=== PATIENT | male | born 1950 | race Caucasian/White ===

== ENCOUNTER → 2016-06-15 | Day surgery (SDC) | payer BC ==
[2016-06-09 09:29] VITALS: Ht 182.9 cm; Wt 102.3 kg
[~2016-06-15] VITALS: Ht 182.9 cm; Wt 102.3 kg
[~2016-06-15] MED LIST: ACT/30 PO; ALBUAER2 INH; ASPI81TA28 PO; CHOL100027 PO; CYAN500T PO; CYM30 PO; FENO67CA PO; GLCSR500 PO; INSDGI SC; KRIL1000 PO; LIDOCAINE HCL 2% 2 ML VIAL (20MG/ML) ONE; LISI20TA3 PO; MIDAZOLAM HCL 1 MG/ML 2ML VIAL ONE; ONDANSETRON INJ 2 MG/ML 2 ML VIAL ONE; PROPOFOL IV EMULSION 10 MG/ML 20 ML VIAL IV ONE; REPA2TAB13 PO; SODIUM CHLORIDE 0.9% 500ML 500 ML IV ONE; TAMS0.4C59 PO; TPRSR100 PO; ZNT/150 PO
[2016-06-15 08:15] VITALS: TEMP 36.8
--- NOTE | 2016-06-15 08:49 | Endo History and Physical ---
History & Physical Date of Service: Jun 15, 2016. Chief Complaint: 3 yr f/u, Hx polyps, Family Hx colon CA Referring Physician: Kaci Aguilera History of Present Illness h/o polyps, mother had colon cancer Past Medical History Diabetes, Angioplasty/Stent, Arthritis, Anxiety, Reflux, Hypertension Past Surgical History Hx Cardiac Surgery: Yes (HEART CATH X2, STENT X1) Hx Internal Defibrillator: No Hx Pacemaker: No Hx Abdominal Surgery: Yes ([facility]ALD) Hx of Implantable Prosthesis: No Hx Post-Op Nausea and Vomiting: No Hx Cancer Surgery: No Hx Thoracic Surgery: No Hx Orthopedic: No Hx Urinary Tract Surgery: No Family History Colon CA Social History Smoking Status: Former Smoker Hx Substance Use: No Hx Alcohol Use: Yes (OCCASIONAL) Allergies Coded Allergies: Statins (Verified Allergy, Mild, HYPEREOSINOPHILIA, 06/09/16) HMG-CoA-R Inhibitors (Verified Allergy, Unknown, HYPEREOSINOPHILIA, ) NSAIDs (Verified Allergy, Unknown, SENSITIVITY R/T HX EOSINOPHILIA, ) Quinolones (Verified Allergy, Unknown, HYPEREOSINOPHILIA, 06/09/16) Current Medications Reported Home Medications Medications Dose Route/Sig Max Daily Dose Days Date Category Lantus (Insulin Glargine) 100 Unit/Ml Inj 50 Units SC QPM 06/09/16 Reported Vitamin B-12 (Cyanocobalamin) 500 Mcg Tab 500 Mcg PO DAILY 06/09/16 Reported Aspirin Ec (Aspirin) 81 Mg Tab 81 Mg PO QAM 06/09/16 Reported Prinivil (Lisinopril) 20 Mg Tab 20 Mg PO QAM 06/09/16 Reported Toprol Xl (Metoprolol Succinate) 100 Mg Tabcr 50 Mg PO QAM 01/09/15 Reported Krill Oil 1 Cap Cap 1 Cap PO DAILY 02/02/13 Reported Flomax (Tamsulosin Hcl) 0.4 Mg Cap 0.4 Mg PO QPM 02/02/13 Reported Vitamin D 1000 Unit (Cholecalciferol) 1,000 Unit Cap 1,000 Inter.unit PO Q2D 03/13/12 Reported Tricor (Fenofibrate Micronized) 67 Mg Cap 67 Mg PO QPM 03/13/12 Reported Prandin (Repaglinide) 2 Mg Tab 2 Mg PO QPM 03/13/12 Reported Zantac (Ranitidine Hcl) 150 Mg Tab 150 Mg PO QAM 03/13/12 Reported Actos (Pioglitazone Hcl) 30 Mg Tab 30 Mg PO QAM 03/13/12 Reported Glucophage Ext Rel * (Metformin HCl) 1,000 Mg Tabcr 1,000 Mg PO BID 03/02/09 Reported Cymbalta * (Duloxetine HCl) 30 Mg Cap 30 Mg PO QAM 03/02/09 Reported Ventolin (Albuterol) Inh 2 Puffs INH Q4H PRN 03/02/09 Reported Vital Signs Weight (Kilograms): 102.27 Height (Feet): 6 Height (Inches): 0 Date Time Temp Pulse Resp B/P Pulse Ox O2 Delivery O2 Flow Rate FiO2 06/15/16 08:15 36.8 73 20 191/93 99 Room Air Physical Exam General Appearance: WD/WN, no apparent distress Assessment and Plan Colonoscopy today
--- NOTE | 2016-06-15 09:24 | GI REPORT ---
Procedure Date: 06/15/2016 9:02 AM Procedure: Colonoscopy Indications: Surveillance: Personal history of adenomatous polyps on last colonoscopy 3 years ago, Family history of colon cancer in a first-degree relative Medicines: Propofol per Anesthesia Complications: No immediate complications. Estimated blood loss: Minimal. Estimated Blood Loss: Estimated blood loss was minimal. Procedure: Pre-Anesthesia Assessment: - Prior to the procedure, a History and Physical was performed, and patient medications, allergies and sensitivities were reviewed. The patient's tolerance of previous anesthesia was reviewed. - The risks and benefits of the procedure and the sedation options and risks were discussed with the patient. All questions were answered and informed consent was obtained. - Patient identification and proposed procedure were verified prior to the procedure by the physician and the nurse. The procedure was verified in the pre-procedure area in the procedure room. - Mental Status Examination: alert and oriented. Airway Examination: normal oropharyngeal airway and neck mobility. Respiratory Examination: clear to auscultation. CV Examination: normal. Abdominal Examination: bowel sounds present, abdomen soft and non-tender, no masses or organomegaly noted. - ASA Grade Assessment: II - A patient with mild systemic disease. After I obtained informed consent, the scope was passed under direct vision. Throughout the procedure, the patient's blood pressure, pulse, and oxygen saturations were monitored continuously. The scope was introduced through the anus and advanced to the terminal ileum. The colonoscopy was performed without difficulty. The patient tolerated the procedure well. The quality of the bowel preparation was good. Findings: The perianal and digital rectal examinations were normal. Pertinent negatives include normal sphincter tone and no palpable rectal lesions. The terminal ileum appeared normal. Two sessile polyps were found in the ascending colon. The polyps were 2 to 3 mm in size. These polyps were removed with a cold snare. Resection and retrieval were complete. Verification of patient identification for the specimen was done by the physician and nurse using the patient's name and date. Estimated blood loss was minimal. Multiple small and large-mouthed diverticula were found in the sigmoid colon. The retroflexed view of the distal rectum and anal verge was normal and showed no anal or rectal abnormalities. Impression: - The examined portion of the ileum was normal. - Two 2 to 3 mm polyps in the ascending colon, removed with a cold snare. Resected and retrieved. - Diverticulosis in the sigmoid colon. - The distal rectum and anal verge are normal on retroflexion view. Recommendation: - Await pathology results. - Repeat colonoscopy in 3 years for surveillance. - Return to referring physician as previously scheduled. - Discharge patient to home. Medina Navarrete D.O. Medina Navarrete, 06/15/2016 9:23:47 AM This report has been signed electronically. Note Initiated On: 06/15/2016 9:02 AM I attest to the content of the Intraoperative Record and orders documented therein, exceptions below
--- NOTE | 2016-06-15 09:32 | Discharge Instructions ---
Endoscopy Patient Instructions Date / Procedure(s) Performed Jun 15, 2016. Colonoscopy Allergy Information Coded Allergies: Statins (Verified Allergy, Mild, HYPEREOSINOPHILIA, 06/09/16) HMG-CoA-R Inhibitors (Verified Allergy, Unknown, HYPEREOSINOPHILIA, ) NSAIDs (Verified Allergy, Unknown, SENSITIVITY R/T HX EOSINOPHILIA, ) Quinolones (Verified Allergy, Unknown, HYPEREOSINOPHILIA, 06/09/16) Discharge Date / Findings Jun 15, 2016. polyps, diverticulosis Medication Instructions Restart Stopped Medication(s): OK to resume home medications OK to resume home medications Provider Instructions Activity Restrictions - No exercising or heavy lifting for 24 hours. - Do not drink alcohol the day of the procedure. - Do not drive a car or operate machinery until the day after the procedure. - Do not make any important decisions or sign important papers in 24 hours after the procedure. Following Day: - Return to full activity which may include returning to work/school. Diet Start your diet with liquids and light foods (jello, soup, juice, toast). Then eat your usual diet if not nauseated. Treatment For Common After Affects For mild abdominal pain, bloating, or excessive gas: - Rest - Eat lightly - Lie on right side Follow-Up Information Follow-up with Kaci Aguilera as scheduled Anesthesia Information What You Should Know You have had a procedure that required some medicine to reduce anxiety and discomfort. This treatment is called moderate sedation. After receiving the treatment, you may be sleepy, but you will be able to breathe on your own. The effects of the treatment may last for several hours. Follow these instructions along with Activity/Diet recommendations noted above: * Do NOT do anything where dizziness or clumsiness would be dangerous. * Rest quietly at home today, then you can be up and about tomorrow. * Have a responsible person stay with you the rest of today. * You may have had an I.V. today. If so, you may take the dressing off later today. Recommendations Call your doctor if: * Trouble breathing * Continuous vomiting for more than 24 hours * Temperature above 101 degrees * Severe abdominal pain or bloating * Pain not relieved by pain medicine ordered * There is increased drainage or redness from any incision * A large amount of rectal bleeding greater than 2-3 tablespoons. (If you had a polyp/s removed or have hemorrhoids, a small amount of blood - from the rectum is to be expected.) * You have any unanswered questions or concerns. IN THE EVENT OF A SERIOUS EMERGENCY, GO TO THE NEAREST EMERGENCY ROOM Your discharge instructions were prepared by provider Medina Navarrete. Patient Instructions Signature Page Ryan Guerrero Patient (or Guardian) Signature/Date: I have read and understand the instructions given to me by my caregivers. Caregiver/RN/Doctor Signature/Date: The above-named patient and/or guardian has received patient instructions on this date. + Original Patient Signature Page (only) stays with chart. Please make copy for patient.
[2016-06-15 09:54] VITALS: BP 142/89; PULSE 75; O2SAT 98
--- NOTE | 2016-06-15 10:07 | Anesthesiology Progress Note ---
Anesthesia Post Op Note Date & Time Jun 15, 2016 at 10:07 Vital Signs Pain Intensity: 0 Vital Signs Past 12 Hours Date Time Temp Pulse Resp B/P Pulse Ox O2 Delivery O2 Flow Rate FiO2 06/15/16 09:54 75 20 142/89 98 Room Air 06/15/16 09:39 74 20 152/89 97 Room Air 06/15/16 09:24 76 20 130/72 95 Room Air 06/15/16 08:15 36.8 73 20 191/93 99 Room Air Notes Mental Status: alert / awake / arousable, participated in evaluation Pt Amnestic to Procedure: Yes Nausea / Vomiting: adequately controlled Pain: adequately controlled Airway Patency, RR, SpO2: stable & adequate BP & HR: stable & adequate Hydration State: stable & adequate Anesthetic Complications: no major complications apparent
== END | disposition home or self-care (01) ==
LOC: C.GI 07:36
PROVIDERS: ATTEND Internal Medicine
DX: Z12.11 Encounter for screening for malignant neoplasm of colon (principal); Z86.010 Personal history of colon polyps; D12.2 Benign neoplasm of ascending colon; K57.30 Diverticulosis of large intestine without perforation or abscess without bleeding; I25.10 Atherosclerotic heart disease of native coronary artery without angina pectoris; I10 Essential (primary) hypertension; E11.9 Type 2 diabetes mellitus without complications; J45.909 Unspecified asthma, uncomplicated; J44.9 Chronic obstructive pulmonary disease, unspecified; N40.0 Benign prostatic hyperplasia without lower urinary tract symptoms; Z87.891 Personal history of nicotine dependence; Z68.30 Body mass index [BMI] 30.0-30.9, adult; Z79.4 Long term (current) use of insulin; Z80.0 Family history of malignant neoplasm of digestive organs

== ENCOUNTER → 2017-03-30 | Outpatient (CLI) | payer OTHER ==
[~2017-03-30] MED LIST changes: -LIDOCAINE HCL 2% 2 ML VIAL (20MG/ML) ONE; -MIDAZOLAM HCL 1 MG/ML 2ML VIAL ONE; -ONDANSETRON INJ 2 MG/ML 2 ML VIAL ONE; -PROPOFOL IV EMULSION 10 MG/ML 20 ML VIAL IV ONE; +REPA2TAB11 PO; -REPA2TAB13 PO; -SODIUM CHLORIDE 0.9% 500ML 500 ML IV ONE
--- NOTE | 2017-03-30 11:45 | DIAGNOSTIC IMAGING REPORT ---
CHEST 2 VIEWS ROUTINE CLINICAL HISTORY: Chronic cough. COMPARISON STUDY: Chest radiograph June 10, 2014. FINDINGS: Lung volumes are normal. No pneumothorax or pleural effusion is noted. Cardiac size is normal. Pulmonary vascularity is normal. Mild left lower lung opacity is unchanged and likely reflects atelectasis or epicardial fat pad. A nodular density projecting of the left lower lung is unchanged and likely reflects a nipple shadow. IMPRESSION: No acute cardiopulmonary findings. Electronically signed by: Demarcus Faith M.D. 03/30/2017 11:43 AM Dictated Date/Time: 03/30/2017 11:41 AM
== END | disposition home or self-care (01) ==
LOC: C.RAD1850 11:20
PROVIDERS: ATTEND Family Medicine Adolescent Medicine
DX: R05 Cough (principal)

== ENCOUNTER 2022-05-26 11:19 | Observation (INO) ==
[2022-05-26] MEDS ORDERED: MAGNESIUM SULFATE / D5W 1 GM/100 ML BAG IV STA (11:28)
[2022-05-26] MEDS ORDERED: SODIUM CHLORIDE 0.9% 1000ML 1,000 ML IV SCH (11:30)
[2022-05-26] MEDS ORDERED: dilTIAZem HCl 5 MG/ML 5 ML VIAL IV STA (11:31)
[2022-05-26] MEDS ORDERED: dilTIAZem HCl 5 MG/ML 5 ML VIAL IV ONE (11:32)
--- NOTE | 2022-05-26 11:53 | Emergency Department Note ---
Impression & Plan Atrial fibrillation with rapid ventricular response, Acute hyperglycemia, Hypomagnesemia ED Provider Note NAME: GEN RUIZ AGE: 71 SEX: M : 1950 ARRIVES VIA: Walk-In INFORMANT: Patient, ED PROVIDER(S): Aryan Waggoner DO CHIEF COMPLAINT: Palpitations HPI: The patient is a 71-year-old male who presented to the emergency department from his primary care physician's office for an evaluation of fast heart rate. The patient has a history of atrial fibrillation. He also has been having problems over the last few weeks with some sort of infection. He had fever he has had malaise he states over the last week he has felt very bad with weakness and is having no energy. He says he has had weight loss as well. The patient states he went to his family doctor's office for some testing. They were going to send him for some outpatient testing but then noticed that he was very tachycardic. The patient was noted to be in rapid atrial fibrillation/flutter. He was sent to the emergency department for further evaluation. ROS: See above HPI for pertinent positives & negatives. A total of 10 systems reviewed and were otherwise negative. PAST MEDICAL HISTORY: See Below PAST SURGICAL HISTORY: See Below FAMILY HISTORY: See Below SOCIAL HISTORY: See Below HOME MEDICATIONS: See Below ALLERGIES: See Below VITALS: See Below PHYSICAL EXAMINATION: GENERAL: Patient is awake alert in no acute distress patient is resting comfortably and showing no signs of anxiety EYES: The conjunctivae are clear. The pupils are round and reactive. EARS, NOSE, MOUTH AND THROAT: The nose is without any evidence of any deformity. NECK: The neck is nontender and supple. RESPIRATORY: Normal respiratory effort is noted there is no evidence of wheezing rhonchi or rales CARDIOVASCULAR: Tachycardic and regular heart sounds were noted to auscultation. There is no definite murmur. GASTROINTESTINAL: The abdomen is soft. Abdomen is nontender. MUSCULOSKELETAL/EXTREMITIES: There is no evidence of gross deformity full range of motion is noted in the hips and shoulders. SKIN: There is no obvious evidence of any rash. There are no petechiae, pallor or cyanosis noted. NEUROLOGIC: Patient is awake alert and oriented x3 MEDICAL DECISION MAKING: The patient is a 71-year-old male who presented to the emergency department for an evaluation of generalized weakness and palpitations. The patient went to see his family doctor for the symptoms today and was sent directly to the emergency department for atrial fibrillation with RVR. The patient was found to be in A- fib/flutter. He was treated with IV Cardizem IV fluids and IV magnesium in the emergency department. He was reevaluated multiple times. On subsequent reevaluation he was in rate controlled atrial fibrillation. He still had episodes of atrial flutter. I discussed the patient's condition with him. I also discussed his condition with the on-call [facility] hospitalist. They have agreed to evaluate the patient in the emergency department for further management and disposition. The patient was also treated with IV insulin in the emergency department for elevated blood sugar. Triage Nursing notes reviewed. Prior medical records reviewed Vital Signs: reviewed and remarkable for tachycardia. Differential diagnosis: Infection, dehydration, metabolic abnormality, hypo/hyperglycemia, electrolyte disturbance, anemia, hypoxia, cardiac sources, intracerebral event, toxicologic, neurologic, as well as other pathologies. ER treatment provided: See below Diagnostics interpreted by me: ECG: EKG was obtained in the emergency department. My interpretation is atrial flutter at 120 bpm. No PVCs were noted. Diffuse ST segment abnormalities were appreciated. This was compared to a tracing from February 13, 2014. Sinus rhythm has been replaced with atrial flutter. Cardiac Monitoring: An order was placed for continuous cardiac monitoring. The monitor shows a rate of 95 bpm with atrial fib. Laboratory studies: As stated above and show below. Imaging studies: See below. Radiographic imaging was reviewed by myself Consultation(s): I discussed this case with Dr. Wright who [facility]. Past Med/Surg History Medical History (Updated 05/26/22 @ 14:48 by Aryan Waggoner DO) Anxiety Arthritis Asthma uses res. inh approx once daily Atrial fibrillation dx: 4 yrs ago > [facility] > no pacer/cardioversion BPH (benign prostatic hyperplasia) Bronchitis Diabetes mellitus, type 2 GERD (gastroesophageal reflux disease) Hyperlipidemia Hypertension Osteoarthritis Peptic ulcer disease HX Ulcerative colitis Surgical History History of cardiac cath 2012 and 2013 > for ekg changes History of cholecystectomy History of colonoscopy History of endoscopic sinus surgery History of heart artery stent 2013> Martina > 1 stent > follows Dr. Snow [facility] Hx of left cataract extraction Hx of neck surgery fusion > Martina > C6,7 > ROM IS GOOD PER PATIENT S/P cholecystectomy 2009 Family History Mother Colon cancer Father Heart disease Stroke Sister Heart disease Social History Smoking Status: Never smoker Tobacco Type: Cigarettes Second Hand Exposure: No; Hx Alcohol Use: Yes Alcohol type: beer, wine and hard liquor Hx Substance Use: No Preferred Language: Bangladeshi Communication Ability: Effective Registered Massage Therapist Required: No Beliefs That Will Affect Care: None marital status: Current Living Situation: Spouse current occupational status: retired Feels Safe at Home: Yes Assistive Devices: Glasses Allergies Allergies Allergy/AdvReac Type Severity Reaction Status Date / Time trovafloxacin [From Trovan] Allergy Unknown Unknown Verified 05/26/22 13:55 Quinolones AdvReac Intermediate HYPEREOSINO Verified 05/26/22 13:55 PHILIA [id number]-[id number] Reductase AdvReac Intermediate HYPEREOSINO Verified 05/26/22 13:55 Inhibitor PHILIA [Wuiosal-Hoy-Cey Reductase Inhibitor] NSAIDS (Non-Steroidal AdvReac Unknown SENSITIVITY Verified 05/26/22 13:55 Anti-Inflamma R/T HX EOSINOPHILIA Home Meds Home Medications Medication Instructions Recorded Confirmed albuterol sulfate 90 mcg/actuation 2 puff inhalation Q4H PRN 02/24/19 05/26/22 aerosol inhaler (Ventolin HFA) Shortness Of Breath Or Wheezing cholecalciferol (vitamin D3) 25 1,000 unit PO Q OTHER DAY 02/24/19 05/26/22 mcg (1,000 unit) chewable tablet (Vitamin D3) cyanocobalamin (vitamin B-12) 500 500 mcg PO QPM 02/24/19 05/26/22 mcg tablet (Vitamin B-12) duloxetine 30 mg capsule,delayed 30 mg PO QAM 02/24/19 05/26/22 release (Cymbalta) fenofibrate micronized 67 mg 67 mg PO QPM 02/24/19 05/26/22 capsule insulin detemir U-100 100 unit/mL 42 unit subcut PM 02/24/19 05/26/22 subcutaneous solution (Levemir U-100 Insulin) krill 1,000 mg-omega-3 170 mg-dha 1 cap PO QAM 02/24/19 05/26/22 50 mg-epa 80 [id number] capsule (krill oil) lisinopril 20 mg tablet 20 mg PO QAM 02/24/19 05/26/22 tamsulosin 0.4 mg capsule (Flomax) 0.4 mg PO QPM 02/24/19 05/26/22 mesalamine 0.375 gram 0.75 g PO QPM 05/01/19 05/26/22 capsule,extended release 24 hr (Apriso) ascorbic acid (vitamin C) 500 mg 500 mg PO DAILY 06/14/20 05/26/22 tablet (Vitamin C) famotidine 40 mg tablet 40 mg PO DAILY 06/14/20 05/26/22 metformin 500 mg tablet,extended 1,000 mg PO BID 06/14/20 05/26/22 release 24 hr apixaban 5 mg tablet (Eliquis) 5 mg PO BID 08/10/20 05/26/22 aspirin 81 mg tablet,delayed 81 mg PO QAM 08/10/20 05/26/22 release diltiazem HCl 240 mg 240 mg PO QPM 05/26/22 05/26/22 capsule,extended release 24 hr repaglinide 2 mg tablet 2 mg PO QPM 05/26/22 05/26/22 Previous Rx's Medication Instructions Recorded sulfamethoxazole 800 1 tab PO BID #30 tabs 04/28/21 mg-trimethoprim 160 mg tablet (Bactrim DS) Results & Data (ED) Vital Signs Vital Signs - 24 hr 05/26/22 11:20 05/26/22 11:37 05/26/22 11:41 Temperature 36.4 C L Temperature Source Temporal Artery Scan Pulse Rate 165 H 162 H 124 H Pulse Rate from SpO2 Sensor Pulse Rhythm Regular Respiratory Rate 16 Respiratory Effort / Characteristics Non-Labored Spontaneous Respiratory Depth Normal Blood Pressure 123/80 Blood Pressure Mean 94 Pulse Oximetry 97 Oxygen Delivery Method Room Air Sepsis Recent Fever Within 48 Hours No Sepsis New/Unexplained Change in Mental Status No Sepsis Action Taken by Nursing No Action Required 05/26/22 11:31 05/26/22 11:40 05/26/22 11:44 Temperature Temperature Source Pulse Rate 152 H 111 H 116 H Pulse Rate from SpO2 Sensor Pulse Rhythm Respiratory Rate 20 20 19 Respiratory Effort / Characteristics Respiratory Depth Blood Pressure 124/77 132/76 132/76 Blood Pressure Mean 92 94 94 Pulse Oximetry 96 97 96 Oxygen Delivery Method Room Air Room Air Room Air Sepsis Recent Fever Within 48 Hours Sepsis New/Unexplained Change in Mental Status Sepsis Action Taken by Nursing 05/26/22 11:46 05/26/22 12:01 05/26/22 12:15 Temperature Temperature Source Pulse Rate 123 H 91 H 93 H Pulse Rate from SpO2 Sensor Pulse Rhythm Respiratory Rate 18 21 15 Respiratory Effort / Characteristics Respiratory Depth Blood Pressure 133/76 127/63 115/67 Blood Pressure Mean 95 84 83 Pulse Oximetry 95 96 96 Oxygen Delivery Method Room Air Room Air Room Air Sepsis Recent Fever Within 48 Hours Sepsis New/Unexplained Change in Mental Status Sepsis Action Taken by Nursing 05/26/22 12:31 05/26/22 12:49 05/26/22 13:00 Temperature Temperature Source Pulse Rate 122 H 108 H Pulse Rate from SpO2 Sensor 89 Pulse Rhythm Respiratory Rate 17 15 Respiratory Effort / Characteristics Respiratory Depth Blood Pressure 131/82 124/64 118/72 Blood Pressure Mean 98 84 87 Pulse Oximetry 93 94 95 Oxygen Delivery Method Room Air Room Air Room Air Sepsis Recent Fever Within 48 Hours Sepsis New/Unexplained Change in Mental Status Sepsis Action Taken by Nursing 05/26/22 13:23 05/26/22 13:30 Temperature Temperature Source Pulse Rate 111 H 88 Pulse Rate from SpO2 Sensor Pulse Rhythm Respiratory Rate 23 19 Respiratory Effort / Characteristics Respiratory Depth Blood Pressure 135/116 H 117/77 Blood Pressure Mean 122 90 Pulse Oximetry 97 96 Oxygen Delivery Method Room Air Room Air Sepsis Recent Fever Within 48 Hours Sepsis New/Unexplained Change in Mental Status Sepsis Action Taken by [facility] Medications Current Medication List: was personally reviewed by me Laboratory Data Attestation: I reviewed the patient's lab results. 05/26/22 11:38 05/26/22 11:38 Lab Results 05/26/22 05/26/22 05/26/22 Range/Units 11:38 11:38 11:38 WBC 9.22 (4.8-10.8) K/ul RBC 4.70 (4.70-6.10) M/uL Hgb 13.9 L (14.0-18.0) g/dl Hct 42.4 (42.0-52.0) % MCV 90.2 (80.0-100.0) fL MCH 29.6 (25.0-34.0) pg MCHC 32.8 (32.0-36.0) g/dL RDW Std Deviation 41.5 (36.4-46.3) fL RDW Coeff of Luis 12.6 (11.5-14.5) % Plt Count 428 H (130-400) K/uL MPV 10.8 (9.4-12.4) fL Immature Gran % (Auto) 0.5 % Neut % (Auto) 76.3 % Lymph % (Auto) 12.3 % [place] % (Auto) 7.3 % Eos % (Auto) 2.9 % Baso % (Auto) 0.7 % Neut # (Auto) 7.04 H (1.40-6.50) K/uL Lymph # (Auto) 1.13 L (1.2-3.4) K/uL [place] # (Auto) 0.67 H (0.11-0.59) K/uL Eos # (Auto) 0.27 (0-0.50) K/uL Baso # (Auto) 0.06 (0-0.2) K/uL Immature Gran # (Auto) 0.05 (0.01-0.20) K/uL ESR 59 H (0-20) mm/hr PT (9.0-12.0) Seconds INR (0.9-1.1) APTT (21.0-31.0) Seconds PTT Ratio Sodium (136-145) mmol/L Potassium (3.5-5.1) mmol/L Chloride (98-107) mmol/L Carbon Dioxide (21-32) mmol/L Anion Gap (3-11) BUN (6-23) mg/dl Creatinine (0.6-1.4) mg/dl Est Cr Clr Drug Dosing ml/min Est GFR ( Amer) ml/min Est GFR (Non-Af Amer) ml/min BUN/Creatinine Ratio (10-20) Glucose (70-99(Fasting)) mg/dl Calcium (8.5-10.1) mg/dl Magnesium (1.7-2.4) mg/dl Total Bilirubin (0.2-1.0) mg/dl AST (13-39) U/L ALT (7-52) U/L Alkaline Phosphatase (34-104) U/L Troponin I High Sens (0-20) pg/ml C-Reactive Protein (0-0.5) mg/dl Total Protein (6.0-8.3) gm/dl Albumin (3.4-5.0) gm/dl Globulin (2.5-4.0) gm/dl Albumin/Globulin Ratio (0.9-2) Procalcitonin 0.11 (0-0.5) ng/ml TSH (0.300-4.500) uIu/ml Urine Color Urine Appearance (Clear) Urine pH (4.5-7.5) Ur Specific [place] (1.000-1.030) Urine Protein (Negative) Urine Glucose (UA) (Negative) Urine Ketones (Negative) Urine Blood (Negative) Urine Nitrite (Negative) Urine Bilirubin (Negative) Urine Urobilinogen (Negative) Ur Leukocyte Esterase (Negative) Anaplasma Smear See Comment Babesia Smear See Comment Lyme Disease IgG Ab Negative (Negative) Lyme Disease IgM Ab Negative (Negative) SARS-CoV-2 (PCR) (Negative) Influenza Type A (PCR) (Neg) Influenza Type B (PCR) (Neg) RSV (RT-PCR) (Neg) 05/26/22 05/26/22 05/26/22 Range/Units 11:38 11:38 11:38 WBC (4.8-10.8) K/ul RBC (4.70-6.10) M/uL Hgb (14.0-18.0) g/dl Hct (42.0-52.0) % MCV (80.0-100.0) fL MCH (25.0-34.0) pg MCHC (32.0-36.0) g/dL RDW Std Deviation (36.4-46.3) fL RDW Coeff of Luis (11.5-14.5) % Plt Count (130-400) K/uL MPV (9.4-12.4) fL Immature Gran % (Auto) % Neut % (Auto) % Lymph % (Auto) % [place] % (Auto) % Eos % (Auto) % Baso % (Auto) % Neut # (Auto) (1.40-6.50) K/uL Lymph # (Auto) (1.2-3.4) K/uL [place] # (Auto) (0.11-0.59) K/uL Eos # (Auto) (0-0.50) K/uL Baso # (Auto) (0-0.2) K/uL Immature Gran # (Auto) (0.01-0.20) K/uL ESR (0-20) mm/hr PT 10.9 (9.0-12.0) Seconds INR 1.0 (0.9-1.1) APTT 30.2 (21.0-31.0) Seconds PTT Ratio 1.1 Sodium 132 L (136-145) mmol/L Potassium 4.5 (3.5-5.1) mmol/L Chloride 99 (98-107) mmol/L Carbon Dioxide 23 (21-32) mmol/L Anion Gap 10 (3-11) BUN 21 (6-23) mg/dl Creatinine 1.35 (0.6-1.4) mg/dl Est Cr Clr Drug Dosing 57.5 ml/min Est GFR ( Amer) 61.2 ml/min Est GFR (Non-Af Amer) 52.8 ml/min BUN/Creatinine Ratio 15.6 (10-20) Glucose 373 H* (70-99(Fasting)) mg/dl Calcium 9.7 (8.5-10.1) mg/dl Magnesium 1.5 L (1.7-2.4) mg/dl Total Bilirubin 0.4 (0.2-1.0) mg/dl AST 11 L (13-39) U/L ALT 15 (7-52) U/L Alkaline Phosphatase 55 (34-104) U/L Troponin I High Sens 6.7 (0-20) pg/ml C-Reactive Protein 1.46 H (0-0.5) mg/dl Total Protein 8.0 (6.0-8.3) gm/dl Albumin 4.4 (3.4-5.0) gm/dl Globulin 3.6 (2.5-4.0) gm/dl Albumin/Globulin Ratio 1.2 (0.9-2) Procalcitonin (0-0.5) ng/ml TSH 1.550 (0.300-4.500) uIu/ml Urine Color Urine Appearance (Clear) Urine pH (4.5-7.5) Ur Specific [place] (1.000-1.030) Urine Protein (Negative) Urine Glucose (UA) (Negative) Urine Ketones (Negative) Urine Blood (Negative) Urine Nitrite (Negative) Urine Bilirubin (Negative) Urine Urobilinogen (Negative) Ur Leukocyte Esterase (Negative) Anaplasma Smear Babesia Smear Lyme Disease IgG Ab (Negative) Lyme Disease IgM Ab (Negative) SARS-CoV-2 (PCR) (Negative) Influenza Type A (PCR) (Neg) Influenza Type B (PCR) (Neg) RSV (RT-PCR) (Neg) 05/26/22 05/26/22 Range/Units 11:41 12:57 WBC (4.8-10.8) K/ul RBC (4.70-6.10) M/uL Hgb (14.0-18.0) g/dl Hct (42.0-52.0) % MCV (80.0-100.0) fL MCH (25.0-34.0) pg MCHC (32.0-36.0) g/dL RDW Std Deviation (36.4-46.3) fL RDW Coeff of Luis (11.5-14.5) % Plt Count (130-400) K/uL MPV (9.4-12.4) fL Immature Gran % (Auto) % Neut % (Auto) % Lymph % (Auto) % [place] % (Auto) % Eos % (Auto) % Baso % (Auto) % Neut # (Auto) (1.40-6.50) K/uL Lymph # (Auto) (1.2-3.4) K/uL [place] # (Auto) (0.11-0.59) K/uL Eos # (Auto) (0-0.50) K/uL Baso # (Auto) (0-0.2) K/uL Immature Gran # (Auto) (0.01-0.20) K/uL ESR (0-20) mm/hr PT (9.0-12.0) Seconds INR (0.9-1.1) APTT (21.0-31.0) Seconds PTT Ratio Sodium (136-145) mmol/L Potassium (3.5-5.1) mmol/L Chloride (98-107) mmol/L Carbon Dioxide (21-32) mmol/L Anion Gap (3-11) BUN (6-23) mg/dl Creatinine (0.6-1.4) mg/dl Est Cr Clr Drug Dosing ml/min Est GFR ( Amer) ml/min Est GFR (Non-Af Amer) ml/min BUN/Creatinine Ratio (10-20) Glucose (70-99(Fasting)) mg/dl Calcium (8.5-10.1) mg/dl Magnesium (1.7-2.4) mg/dl Total Bilirubin (0.2-1.0) mg/dl AST (13-39) U/L ALT (7-52) U/L Alkaline Phosphatase (34-104) U/L Troponin I High Sens (0-20) pg/ml C-Reactive Protein (0-0.5) mg/dl Total Protein (6.0-8.3) gm/dl Albumin (3.4-5.0) gm/dl Globulin (2.5-4.0) gm/dl Albumin/Globulin Ratio (0.9-2) Procalcitonin (0-0.5) ng/ml TSH (0.300-4.500) uIu/ml Urine Color Yellow Urine Appearance Clear (Clear) Urine pH 5.0 (4.5-7.5) Ur Specific [place] 1.027 (1.000-1.030) Urine Protein Negative (Negative) Urine Glucose (UA) 3+ H (Negative) Urine Ketones Negative (Negative) Urine Blood Negative (Negative) Urine Nitrite Negative (Negative) Urine Bilirubin Negative (Negative) Urine Urobilinogen Negative (Negative) Ur Leukocyte Esterase Negative (Negative) Anaplasma Smear Babesia Smear Lyme Disease IgG Ab (Negative) Lyme Disease IgM Ab (Negative) SARS-CoV-2 (PCR) NEGATIVE (Negative) Influenza Type A (PCR) Negative (Neg) Influenza Type B (PCR) Negative (Neg) RSV (RT-PCR) Negative (Neg) Administered Medications Discontinued Medications Diltiazem HCl (Diltiazem Hcl 5 Mg/Ml 5 Ml Vial) 10 mg IV NOW STA Stop: 05/26/22 11:32 Last Admin: 05/26/22 11:35 Dose: 10 mg Documented By: CICI Co-signed By: [place] Diltiazem HCl (Diltiazem Hcl 5 Mg/Ml 5 Ml Vial) Confirm Administered Dose 25 mg IV .STK-MED ONE Stop: 05/26/22 11:33 Last Admin: 05/26/22 11:35 Dose: Not Given Documented By: CICI Sodium Chloride (Nss 1000ml) 1,000 mls @ 999 mls/hr IV .Q1H1M REY Stop: 05/26/22 12:30 Last Infusion: 05/26/22 12:35 Dose: 0 mls/hr Documented By: Admin: 05/26/22 11:34 Dose: 999 mls/hr Documented By: CICI Magnesium Sulfate/Dextrose (Magnesium Sulfate / D5w) 1 gm in 100 mls @ 100 mls/hr IV NOW STA Stop: 05/26/22 12:27 Last Infusion: 05/26/22 12:34 Dose: 0 mls/hr Documented By: Admin: 05/26/22 11:34 Dose: 100 mls/hr Documented By: CICI Imaging Data Attestation: I personally reviewed and interpreted this imaging study as follows: My Impression: 1 view chest x-ray was obtained in the emergency department. My interpretation is no definite infiltrate, no free air. Radiologist's Impression: Chest X-Ray 05/26/22 11:27 XR chest 1V portable HISTORY: 71 years-old Male weakness acute weakness COMPARISON: 06/14/2020 TECHNIQUE: AP view of the chest FINDINGS: Cardiomediastinal and hilar silhouettes are within normal limits. No pneumothorax, pleural effusion, airspace consolidation or pulmonary edema. Partially imaged cervical spinal fusion hardware. IMPRESSION: No acute process. ACT 112: Negative or not required by law. The above report was generated using voice recognition software. It may contain grammatical, syntax or spelling errors. Electronically signed by: Jamal Galo M.D. 05/26/2022 11:54 AM Discharge Plan Visit Data Chief Complaint: Tachycardia Stated Complaint: HIGH HEART RATE, REF BY DOC ED Provider: Aryan Waggoner Discharge Problem: Atrial fibrillation with rapid ventricular response, Acute hyperglycemia, Hypomagnesemia Patient Disposition: Being Evaluated by Hospitalist Forms Stand Alone Forms: My [facility] Prescriptions Prescriptions: No Action sulfamethoxazole-trimethoprim [Bactrim DS] 800-160 mg tablet 1 tab PO BID Qty: 30 0RF lisinopril 20 mg Tablet 20 mg PO QAM fenofibrate micronized 67 mg Capsule 67 mg PO QPM cyanocobalamin (vitamin B-12) [Vitamin B-12] 500 mcg Tablet 500 mcg PO QPM tamsulosin [Flomax] 0.4 mg Capsule 0.4 mg PO QPM albuterol sulfate [Ventolin HFA] 90 mcg/actuation Hfa Aerosol Inhaler 2 puff INHALATION Q4H PRN (Reason: Shortness Of Breath Or Wheezing) duloxetine [Cymbalta] 30 mg Capsule,Delayed Release(Dr/Ec) 30 mg PO QAM Levemir U-100 Insulin 100 unit/mL Solution 42 unit SUBCUT PM cholecalciferol (vitamin D3) [Vitamin D3] 1,000 unit Tablet,Chewable 1,000 unit PO Q OTHER DAY Rx Instructions: HS krill oil 1,007-014-06-80 mg Capsule 1 cap PO QAM mesalamine [Apriso] 0.375 gram Capsule,Extended Release 24hr 0.75 g PO QPM aspirin 81 mg Tablet,Delayed Release (Dr/Ec) 81 mg PO QAM Eliquis 5 mg tablet 5 mg PO BID famotidine 40 mg tablet 40 mg PO DAILY ascorbic acid (vitamin C) [Vitamin C] 500 mg Tablet 500 mg PO DAILY metformin 500 mg tablet extended release 24 hr 1,000 mg PO BID diltiazem HCl 240 mg capsule,extended release 24hr 240 mg PO QPM repaglinide 2 mg tablet 2 mg PO QPM Referrals Referrals: Serafin Hein MD [Primary Care Provider] -
[2022-05-26 12:36] LABS: Influenza A virus by PCR Negative (Neg); Influenza B virus by PCR Negative (Neg); RSV by PCR Negative (Neg); SARS CoV2 RNA(COVID-19) Ceph NEGATIVE (Negative)
[2022-05-26 12:42] LABS: Basophils # (auto) 0.06 K/uL (0-0.2); Basophils % (auto) 0.7 %; Eosinophils # (auto) 0.27 K/uL (0-0.50); Eosinophils % (auto) 2.9 %; Hematocrit (blood only) 42.4 % (42.0-52.0); Hemoglobin 13.9 g/dl (14.0-18.0); Immature Granulocytes # (auto) 0.05 K/uL (0.01-0.20); Immature Granulocytes % (auto) 0.5 %; Lymphocytes # (auto) 1.13 K/uL (1.2-3.4); Lymphocytes % (auto) 12.3 %; Mean Corpuscular Hemoglobin 29.6 pg (25.0-34.0); Mean Corpuscular Hgb Conc 32.8 g/dL (32.0-36.0); Mean Corpuscular Volume 90.2 fL (80.0-100.0); Mean Platelet Volume 10.8 fL (9.4-12.4); Monocytes # (auto) 0.67 K/uL (0.11-0.59); Monocytes % (auto) 7.3 %; Neutrophils # (auto) 7.04 K/uL (1.40-6.50); Neutrophils % (auto) 76.3 %; Platelet Count 428 K/uL (130-400); RDW Coefficient of Variation 12.6 % (11.5-14.5); RDW Standard Deviation 41.5 fL (36.4-46.3); White Blood Count 9.22 K/ul (4.8-10.8)
[2022-05-26 13:02] LABS: Partial Thromboplastin Ratio 1.1; Partial Thromboplastin Time 30.2 Seconds (21.0-31.0); Prothrombin Time 10.9 Seconds (9.0-12.0)
--- NOTE | 2022-05-26 13:03 | Electrocardiogram Report ---
Test Reason : Blood Pressure : / mmHG Vent. Rate : 120 BPM Atrial Rate : 330 BPM P-R Int : 000 ms QRS Dur : 098 ms QT Int : 312 ms P-R-T Axes : -35 092 072 degrees QTc Int : 440 ms Poor data quality, interpretation may be adversely affected Atrial flutter with variable A-V block Rightward axis Abnormal ECG When compared with ECG of 13-FEB-2014 07:01, Atrial flutter has replaced Sinus rhythm HR has increased by 24 bpm Confirmed by Rj Awan ([id number]) on 05/26/2022 1:03:22 PM Referred By: Confirmed By:Rj Awan
[2022-05-26 13:08] LABS: Troponin I High Sensitivity 6.7 pg/ml (0-20)
--- NOTE | 2022-05-26 13:09 | History & Physical Report ---
Date of Service May 26, 2022 Assessment & Plan (1) Atrial flutter: Plan: Atrial fibrillation/flutter CXR: No acute process Admission EKG: Atrial flutter with variable 1-3:1 block, rate approximately 120, QTc 440, no territorial ST segment changes. Comparison EKG January 2014, at that time sinus with a slight ST elevation suspicious for early repole. No chest pain Troponin is normal Suspect in the setting of acute prostatitis and dehydration Diltiazem continued, received IV push 10 mg on admission Home diltiazem continued If IV rate control needed will use metoprolol 5 mg every 5 minutes up to 3 doses, on-call order placed Patient is anticoagulated on Eliquis, continue twice daily. Missed a few doses last week (more than 5 days ago), has taken consistently since Patient does not show evidence of CAD/ischemic heart disease at this time. Troponin is normal and he has no chest pain. If he were to worsen and require a cardiac cath he would prefer to have this done at [facility] where CT surgery is available for complications. Cardiac cath is not indicated at this time, patient is agreeable to treatment for atrial flutter with rapid rate BPH, prostatitis Exam consistent with prostatitis at PCP Patient did start Bactrim at home prior to UA/UC being collected with leftover pill in pocket prescription, gradually improving on this We will continue Bactrim p.o. twice daily for prostatitis, will need course extended for 4 to 6 weeks Repeat urine collected, likely to be sterile due to antibiotic use No leukocytosis, hemodynamically stable, does not appear septic Type II DM Based on home basal 40: Lantus 20 twice daily, CF 20, ratio 7 Hyperglycemic on admission, 5 units IV insulin given in ER Fluids given, basal bolus placed as above Goal BSG [id number] Trended Tick bite Tick panel pending Crohn's disease Continue mesalamine Last colonoscopy within 1 year, polyp removed otherwise normal per patient No acute bleeding/melena/hematochezia, hemoglobin near baseline Asthma No acute exacerbation Albuterol as needed DVT prophylaxis: Anticoagulated on Eliquis Diet: Clears, n.p.o. at midnight in case cardioversion is required Disposition: Telemetry CODE STATUS: Full code (2) Prostatitis: (3) Tick bite: (4) Benign localized hyperplasia of prostate with urinary obstruction: (5) Diabetes mellitus: (6) Diabetes mellitus, type 2: (7) Asthma: (8) Anxiety: (9) GERD (gastroesophageal reflux disease): (10) Hyperlipidemia: History of Present Illness Primary Care Provider: Serafin Hein MD Ryan Guerrero is a 71-year-old male with past medical history of atrial flutter, type II DM, ulcerative colitis, mild persistent allergic asthma, hypertension, dyslipidemia, depression, family history of colon cancer who presents on referral from PCP for rapid A-fib/a flutter. Patient said 1 week of fatigue, generalized weakness, and recent weight loss and was found to be tachycardic on PCP assessment. Ryan presents to the emergency department on referral from his PCP. He notes that he has felt very poor for about 2 weeks with night sweats, headache, joint aches, reduced urination, suprapubic pressure and general unwellness. About 4 days prior to becoming unwell he did have a tick in his groin which he removed. Patient did have a prostate exam at his PCP due to feeling of swelling, patient was noted to have a smooth, enlarged prostate tender to palpation suspicious for prostatitis earlier today. Patient felt that he has gradually improved since taking Bactrim which she was prescribed 1 year ago after a UroLift. He did not have a urine sample collected for culture prior to starting Bactrim, but does feel he is gradually improved with this although has been eating poorly. At his PCP office he was found to have a rapid heart rate of up to 150 and was recommended for ER evaluation. He does have a history of A-fib anticoagulated with Eliquis which he has taken twice daily but did miss a few doses last week. He has not missed any doses in the last 5 days. He reports he has felt much more fatigued in the last week. He has not had any chest pain, chest pressure. He has not passed out or felt like he was going to pass out, but does have easy fatigue and no energy. He is not short of breath, no cough, no congestion No leukocytosis Hemoglobin 13.9, at baseline for patient MCV 90 BSG 373 Sodium 132, potassium 4.5, creatinine is with baseline of approximate 21.3, 1.35 on admission CRP 1.46 Patient recently diagnosed with prostatitis with a positive Pro-Patrick TSH A flutter Medications reviewed and reconciled against PCP records Apixaban 5 mg twice daily Aspirin 81 mg daily Cardizem to 40 extended release in the evening Duloxetine 30 mg daily Fenofibrate 67 mg daily Flonase as needed Levemir 40 units daily Lisinopril 20 mg daily Mesalamine 0.75 g every morning Metformin XR 1 g twice daily Albuterol as needed Repaglinide 2 mg twice daily Flomax 0.4 mg daily Vitamin B, vitamin C, vitamin D Tylenol as needed Medical History: Reviewed Medications: Reviewed Surgical History: Reviewed Family history: Reviewed Allergies: Reviewed Social History: Uses chew tobacco a pack ranges from lasting a day to several days. Denies regular alcohol use. Code Status: Full code Allergies Allergy/AdvReac Type Severity Reaction Status Date / Time trovafloxacin [From Javier] Allergy Unknown Unknown Verified 05/26/22 13:55 Quinolones AdvReac Intermediate HYPEREOSINO Verified 05/26/22 13:55 PHILIA Tgofmcv-MUY-NyR Reductase AdvReac Intermediate HYPEREOSINO Verified 05/26/22 13:55 Inhibitor PHILIA [Wvyztof-Txo-Wse Reductase Inhibitor] NSAIDS (Non-Steroidal AdvReac Unknown SENSITIVITY Verified 05/26/22 13:55 Anti-Inflamma R/T HX EOSINOPHILIA Home Medications Medication Instructions Recorded Confirmed Type albuterol sulfate 90 mcg/actuation 2 puff inhalation Q4H PRN 02/24/19 05/26/22 History aerosol inhaler (Ventolin HFA) Shortness Of Breath Or Wheezing cholecalciferol (vitamin D3) 25 1,000 unit PO Q OTHER DAY 02/24/19 05/26/22 History mcg (1,000 unit) chewable tablet (Vitamin D3) cyanocobalamin (vitamin B-12) 500 500 mcg PO QPM 02/24/19 05/26/22 History mcg tablet (Vitamin B-12) duloxetine 30 mg capsule,delayed 30 mg PO QAM 02/24/19 05/26/22 History release (Cymbalta) fenofibrate micronized 67 mg 67 mg PO QPM 02/24/19 05/26/22 History capsule insulin detemir U-100 100 unit/mL 42 unit subcut PM 02/24/19 05/26/22 History subcutaneous solution (Levemir U-100 Insulin) krill 1,000 mg-omega-3 170 mg-dha 1 cap PO QAM 02/24/19 05/26/22 History 50 mg-epa 80 na-fdqzfz-ywjwl capsule (krill oil) lisinopril 20 mg tablet 20 mg PO QAM 02/24/19 05/26/22 History tamsulosin 0.4 mg capsule (Flomax) 0.4 mg PO QPM 02/24/19 05/26/22 History mesalamine 0.375 gram 0.75 g PO QPM 05/01/19 05/26/22 History capsule,extended release 24 hr (Apriso) ascorbic acid (vitamin C) 500 mg 500 mg PO DAILY 06/14/20 05/26/22 History tablet (Vitamin C) famotidine 40 mg tablet 40 mg PO DAILY 06/14/20 05/26/22 History metformin 500 mg tablet,extended 1,000 mg PO BID 06/14/20 05/26/22 History release 24 hr apixaban 5 mg tablet (Eliquis) 5 mg PO BID 08/10/20 05/26/22 History aspirin 81 mg tablet,delayed 81 mg PO QAM 08/10/20 05/26/22 History release sulfamethoxazole 800 1 tab PO BID #30 tabs 04/28/21 05/26/22 Rx mg-trimethoprim 160 mg tablet (Bactrim DS) diltiazem HCl 240 mg 240 mg PO QPM 05/26/22 05/26/22 History capsule,extended release 24 hr repaglinide 2 mg tablet 2 mg PO QPM 05/26/22 05/26/22 History Past Med/Surg History Medical History (Updated 05/26/22 @ 14:28 by Duke Petersen MD) Anxiety Arthritis Asthma uses res. inh approx once daily Atrial fibrillation dx: 4 yrs ago > [facility] > no pacer/cardioversion BPH (benign prostatic hyperplasia) Bronchitis Diabetes mellitus, type 2 GERD (gastroesophageal reflux disease) Hyperlipidemia Hypertension Osteoarthritis Peptic ulcer disease HX Ulcerative colitis Surgical History History of cardiac cath 2012 and 2013 > for ekg changes History of cholecystectomy History of colonoscopy History of endoscopic sinus surgery History of heart artery stent 2013> [place] > 1 stent > follows Dr. 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 NAD. Cooperative. HEENT: Atraumatic, normocephalic. Vision/hearing intact. PERLAA Pulm: CTAB A&P. -wheezes, -rales, -rhonchi. Symmetrical chest rise. No increased work of breathing. No respiratory distress. Cardiac: tachycardic irir, -murmur. Radial pulses intact and symmetrical. Abdominal: Nontender, nondistended, soft. BS present. : Prostate exam deferred, pt had same day prostate exam which was enlarged and tender at PCP Ext: Warm, dry, no edema. Moves all extremities equally. Sensation to soft touch intact in distal extremities Results & Data Results & Data ([facility]) Vital Signs (Past 12 Hours) Vital Signs Temp Pulse Resp BP Pulse Ox O2 Del Method 05/26/22 12:49 108 H 15 124/64 94 Room Air 05/26/22 12:31 122 H 17 131/82 93 Room Air 05/26/22 12:15 93 H 15 115/67 96 Room Air 05/26/22 12:01 91 H 21 127/63 96 Room Air 05/26/22 11:46 123 H 18 133/76 95 Room Air 05/26/22 11:44 116 H 19 132/76 96 Room Air 05/26/22 11:40 111 H 20 132/76 97 Room Air 05/26/22 11:31 152 H 20 124/77 96 Room Air 05/26/22 11:41 124 H 05/26/22 11:37 162 H 05/26/22 11:20 36.4 C L 165 H 16 123/80 97 Room Air PG Care Time/CCT Total # of Minutes Spent Total Time Spent with Patient: Total time spent is greater than 50% in coordination of care (as documented) at patient's floor/unit and/or counseling patient: Coding Level of Care Code 87397 INT INP/OBS CARE 3/75MIN Diagnoses Atrial flutter I48.92 Prostatitis N41.9 Tick bite W57.XXXA Benign localized hyperplasia of prostate with urinary obstruction N40.1; N13.8 Diabetes mellitus E11.9 Diabetes mellitus, type 2 E11.9 Asthma J45.909 Anxiety F41.9 GERD (gastroesophageal reflux disease) K21.9 Hyperlipidemia E78.5
[2022-05-26 13:25] LABS: Albumin Level 4.4 gm/dl (3.4-5.0); Bilirubin,Total 0.4 mg/dl (0.2-1.0); Calcium 9.7 mg/dl (8.5-10.1); Magnesium 1.5 mg/dl (1.7-2.4); Potassium 4.5 mmol/L (3.5-5.1)
[2022-05-26 13:25] LABS: Appearance Urine Clear (Clear); Bilirubin Urine Negative (Negative); Blood Urine Negative (Negative); Color Urine Yellow; Glucose Urine UA 3+ (Negative); Ketones Urine Negative (Negative); Leukocyte Esterase Urine Negative (Negative); Nitrite Urine Negative (Negative); Protein Urine Negative (Negative); Specific Gravity Urine 1.027 (1.000-1.030); Urobilinogen Urine Negative (Negative)
[2022-05-26 13:41] LABS: Albumin Globulin Ratio 1.2 (0.9-2); BUN Creatinine Ratio 15.6 (10-20); C Reactive Protein 1.46 mg/dl (0-0.5); Creatinine Clr Calc Pharmacy 57.5 ml/min; Est GFR (African American) 61.2 ml/min; Est GFR (Non-African American) 52.8 ml/min; Globulin 3.6 gm/dl (2.5-4.0)
[2022-05-26] MEDS ORDERED: NovoLIN-R INSULIN PER UNIT CHARGE IV STA (13:44)
[2022-05-26 13:56] LABS: Procalcitonin 0.11 ng/ml (0-0.5)
[2022-05-26 14:02] LABS: Lyme Ab IgG w/WB Rflx Negative (Negative)
[2022-05-26] MEDS ORDERED: CARBOHYDRATES FOR HYPOGLYCEMIA PO PRN (14:02)
[2022-05-26] MEDS ORDERED: GLUCOSE 10 TAB/TUBE PO PRN (14:02)
[2022-05-26] MEDS ORDERED: GLUCOSE 40% GEL 15 GM TUBE PO PRN (14:02)
[2022-05-26] MEDS ORDERED: DEXTROSE 50% 50 ML SYRINGE IV PRN (14:02)
[2022-05-26] MEDS ORDERED: GLUCAGON FOR INJ 1 MG VIAL SQ PRN (14:02)
[2022-05-26 14:04] LABS: Lyme Ab IgM w/WB Rflx Negative (Negative)
[2022-05-26] MEDS ORDERED: METOPROLOL TARTRATE 1 MG/ML VIAL IV PRN (16:55)
[2022-05-26] MEDS ORDERED: NORMOSOL-R 500 ML IV ONE (16:55)
[2022-05-26] MEDS ORDERED: ACETAMINOPHEN 325 MG TAB PO PRN (16:55)
[2022-05-26] MEDS ORDERED: NORMOSOL-R 1,000 ML IV SCH (16:55)
[2022-05-26] MEDS ORDERED: ALBUTEROL HFA 8 GM INHALER INH PRN (16:55)
[2022-05-26] MEDS: INSULIN ASPART PER UNIT SC SCH ×2 (17:22→20:12)
[2022-05-26] MEDS: LANTUS PER UNIT CHARGE SQ SCH (20:12)
[2022-05-26] MEDS: TAMSULOSIN HCL 0.4 MG CAP PO SCH (20:13)
[2022-05-26] MEDS: SULFAMETHOXAZOLE/TRIMETHOPRIM DS 800/160MG TAB PO SCH (20:13)
[2022-05-26] MEDS: dilTIAZem HCL 240 MG CAPCR PO SCH (20:14)
[2022-05-26] MEDS: APIXABAN 5 MG TABLET PO SCH (20:14)
[2022-05-26] MEDS: FENOFIBRATE NANOCRYSTALLIZED 48 MG TABLET PO SCH (20:33)
[2022-05-27 06:34] LABS: Basophils # (auto) 0.06 K/uL (0-0.2); Basophils % (auto) 0.8 %; Eosinophils % (auto) 3.9 %; Hematocrit (blood only) 36.6 % (42.0-52.0); Hemoglobin 12.1 g/dl (14.0-18.0); Immature Granulocytes # (auto) 0.03 K/uL (0.01-0.20); Immature Granulocytes % (auto) 0.4 %; Lymphocytes # (auto) 1.29 K/uL (1.2-3.4); Lymphocytes % (auto) 16.9 %; Mean Corpuscular Hemoglobin 29.5 pg (25.0-34.0); Mean Corpuscular Hgb Conc 33.1 g/dL (32.0-36.0); Mean Corpuscular Volume 89.3 fL (80.0-100.0); Mean Platelet Volume 10.3 fL (9.4-12.4); Monocytes # (auto) 0.74 K/uL (0.11-0.59); Monocytes % (auto) 9.7 %; Neutrophils # (auto) 5.21 K/uL (1.40-6.50); Neutrophils % (auto) 68.3 %; Platelet Count 363 K/uL (130-400); RDW Coefficient of Variation 12.6 % (11.5-14.5); RDW Standard Deviation 40.9 fL (36.4-46.3); White Blood Count 7.63 K/ul (4.8-10.8)
[2022-05-27 06:54] LABS: BUN Creatinine Ratio 17.9 (10-20); Creatinine Clr Calc Pharmacy 67.4 ml/min; Est GFR (African American) 76.7 ml/min; Est GFR (Non-African American) 66.2 ml/min; Magnesium 1.6 mg/dl (1.7-2.4); Potassium 4.5 mmol/L (3.5-5.1)
[2022-05-27] MEDS: FLUTICASONE PROPIONATE NA SPR 16 GM BTL SCH ×2 (09:36→20:42)
[2022-05-27] MEDS: INSULIN ASPART PER UNIT SC SCH ×4 (09:39→20:53)
[2022-05-27] MEDS: LANTUS PER UNIT CHARGE SQ SCH ×2 (09:55→20:52)
[2022-05-27] MEDS: SULFAMETHOXAZOLE/TRIMETHOPRIM DS 800/160MG TAB PO SCH ×2 (10:49→20:44)
[2022-05-27] MEDS: ASPIRIN 81 MG ECTAB PO SCH (10:50)
[2022-05-27] MEDS: APIXABAN 5 MG TABLET PO SCH ×2 (10:50→20:39)
[2022-05-27] MEDS: FAMOTIDINE 40 MG TABLET PO SCH (10:50)
[2022-05-27] MEDS: DULoxetine HCL 30 MG CAP PO SCH (10:51)
--- NOTE | 2022-05-27 12:53 | Hospitalist Progress Note ---
Date of Service May 27, 2022 Assessment & Plan (1) Atrial flutter: Plan: Atrial fibrillation/flutter -Although rate is around 80's at rest, it jumps to 150's on ambulation CXR: No acute process Admission EKG: Atrial flutter with variable 1-3:1 block, rate approximately 120, QTc 440, no territorial ST segment changes. No chest pain, but complains of chest heaviness and SOB, especially on ambulation Troponin is normal Suspect in the setting of acute prostatitis and dehydration Diltiazem continued, received IV push 10 mg on admission Home diltiazem continued Patient is anticoagulated on Eliquis, continue twice daily. Missed a few doses last week (more than 5 days ago), has taken consistently since Cardiology is on consult (2) Prostatitis: Plan: BPH, prostatitis Exam consistent with prostatitis at PCP Patient did start Bactrim at home prior to UA/UC being collected with leftover pill in pocket prescription, gradually improving on this We will continue Bactrim p.o. twice daily for prostatitis, will need course extended for 4 to 6 weeks Repeat urine collected, likely to be sterile due to antibiotic use No leukocytosis, hemodynamically stable, does not appear septic (3) Tick bite: Plan: Tick bite Tick panel pending (4) Diabetes mellitus: Plan: Type II DM Based on home basal 40: Lantus 20 twice daily, CF 20, ratio 7 Hyperglycemic on admission, 5 units IV insulin given in ER Fluids given, basal bolus placed as above Goal BSG [id number] Trended (5) Asthma: Plan: Asthma No acute exacerbation Albuterol as needed (6) Crohn disease: Plan: Crohn's disease Continue mesalamine Last colonoscopy within 1 year, polyp removed otherwise normal per patient No acute bleeding/melena/hematochezia, hemoglobin near baseline (7) Diabetes mellitus, type 2: (8) Anxiety: (9) Benign localized hyperplasia of prostate with urinary obstruction: (10) GERD (gastroesophageal reflux disease): (11) Hyperlipidemia: Plan DVT prophylaxis: Anticoagulated on Eliquis Diet: Clears, n.p.o. at midnight in case cardioversion is required Disposition: Telemetry CODE STATUS: Full code Admission and Anticipated Discharge Date Admission Date: May 26, 2022 Subjective patient seen and examined, complains of some chest heaviness, denies pain, but gets sob on ambulation Review of Systems Review of Systems: All systems reviewed are negative, apart from the ones contained in the history. Physical Exam Physical Exam: The patient is awake, alert and oriented 3, well developed and well nourished, normocephalic and atraumatic, lying in bed and in no acute distress. HEENT--PERRL, EOMI, mucous membranes and oropharynx mildly dry Neck--supple. No JVD. No bruits. Thyroid normal, trachea midline, no adenopathy. Heart--irregular Lungs--clear bilaterally, no respiratory distress, no accessory muscle use. Abdomen--normal bowel sounds and soft. Mild epigastric and left sided abdominal pain Extremities--no cyanosis or clubbing. No edema. Dermatologic--normal skin turgor, normal color, no abnormal lymph nodes, no rash. Neurologic--cranial nerves II through XII grossly intact. Rheumatologic--normal range of motion. Psychiatric--normal affect. Results & Data Results & Data ([facility]) Vital Signs (Past 12 Hours) Vital Signs Temp Pulse Pulse Resp BP Pulse Ox Pulse Ox 05/27/22 10:52 97.9 F 85 18 119/56 L 98 05/27/22 08:35 80 05/27/22 07:16 98.1 F 78 18 101/58 L 95 05/27/22 02:57 97.7 F 77 16 91/53 L 97 05/27/22 01:32 99 O2 Del Method O2 Del Method 05/27/22 10:52 Room Air 05/27/22 08:35 05/27/22 07:16 Room Air 05/27/22 02:57 Room Air 05/27/22 01:32 Room Air PG Care Time/CCT Total # of Minutes Spent Total Time Spent with Patient: Total time spent is greater than 50% in coordination of care (as documented) at patient's floor/unit and/or counseling patient: Coding Level of Care Code 80571 SUB INP/OBS CARE 2/35MIN Diagnoses Atrial flutter I48.92 Prostatitis N41.9 Tick bite W57.XXXA Diabetes mellitus E11.9 Asthma J45.909 Crohn disease K50.90 Diabetes mellitus, type 2 E11.9 Anxiety F41.9 Benign localized hyperplasia of prostate with urinary obstruction N40.1; N13.8 GERD (gastroesophageal reflux disease) K21.9 Hyperlipidemia E78.5 Time Spent (min) 35
--- NOTE | 2022-05-27 16:47 | Cardiology Consultation ---
Date of Consultation May 27, 2022 History of Present Illness Reason for Consultation: Atrial flutter with rapid ventricular response Attending Physician: Symone Louis MD History of Present Illness The patient has been sick over the last number of weeks. With nausea and vomiting in fact he could not keep his medications down including his Eliquis. He is also had prostatitis and may have had a viral illness as well. He describes palpitations with his heart racing on and off over the last 3 to 4 weeks. He is also noticed a decline in his functional capacity since he has been feeling his palpitations. He notes he has been short of breath just walking across the parking lot or walking 75 feet which was new for him. He denies any chest pain or chest pressure. He just aware that his heart rate has been fast and fluttering in his chest. He denies any lightheadedness or dizziness. He denies any presyncope syncope. [place] any lower extremity edema. He denies any bleeding bruising dark stools or black stools. The rest of a complete of systems otherwise negative Allergies Allergy/AdvReac Type Severity Reaction Status Date / Time trovafloxacin [From Trovan] Allergy Unknown Unknown Verified 05/26/22 13:55 Quinolones AdvReac Intermediate HYPEREOSINO Verified 05/26/22 13:55 PHILIA Avnqvun-BOA-DvU Reductase AdvReac Intermediate HYPEREOSINO Verified 05/26/22 13:55 Inhibitor PHILIA [Bwjvsfi-Cya-Ypu Reductase Inhibitor] NSAIDS (Non-Steroidal AdvReac Unknown SENSITIVITY Verified 05/26/22 13:55 Anti-Inflamma R/T HX EOSINOPHILIA Home Medications Medication Instructions Recorded Confirmed Type albuterol sulfate 90 mcg/actuation 2 puff inhalation Q4H PRN 02/24/19 05/26/22 History aerosol inhaler (Ventolin HFA) Shortness Of Breath Or Wheezing cholecalciferol (vitamin D3) 25 1,000 unit PO Q OTHER DAY 02/24/19 05/26/22 History mcg (1,000 unit) chewable tablet (Vitamin D3) cyanocobalamin (vitamin B-12) 500 500 mcg PO QPM 02/24/19 05/26/22 History mcg tablet (Vitamin B-12) duloxetine 30 mg capsule,delayed 30 mg PO QAM 02/24/19 05/26/22 History release (Cymbalta) fenofibrate micronized 67 mg 67 mg PO QPM 02/24/19 05/26/22 History capsule insulin detemir U-100 100 unit/mL 42 unit subcut PM 02/24/19 05/26/22 History subcutaneous solution (Levemir U-100 Insulin) krill 1,000 mg-omega-3 170 mg-dha 1 cap PO QAM 02/24/19 05/26/22 History 50 mg-epa 80 qp-igjlsm-quddk capsule (krill oil) lisinopril 20 mg tablet 20 mg PO QAM 02/24/19 05/26/22 History tamsulosin 0.4 mg capsule (Flomax) 0.4 mg PO QPM 02/24/19 05/26/22 History mesalamine 0.375 gram 0.75 g PO QPM 05/01/19 05/26/22 History capsule,extended release 24 hr (Apriso) ascorbic acid (vitamin C) 500 mg 500 mg PO DAILY 06/14/20 05/26/22 History tablet (Vitamin C) famotidine 40 mg tablet 40 mg PO DAILY 06/14/20 05/26/22 History metformin 500 mg tablet,extended 1,000 mg PO BID 06/14/20 05/26/22 History release 24 hr apixaban 5 mg tablet (Eliquis) 5 mg PO BID 08/10/20 05/26/22 History aspirin 81 mg tablet,delayed 81 mg PO QAM 08/10/20 05/26/22 History release sulfamethoxazole 800 1 tab PO BID #30 tabs 04/28/21 05/26/22 Rx mg-trimethoprim 160 mg tablet (Bactrim DS) diltiazem HCl 240 mg 240 mg PO QPM 05/26/22 05/26/22 History capsule,extended release 24 hr repaglinide 2 mg tablet 2 mg PO QPM 05/26/22 05/26/22 History Patient History Medical History Anxiety Arthritis Asthma uses res. inh approx once daily Atrial fibrillation dx: 4 yrs ago > [facility] [place] > no pacer/cardioversion BPH (benign prostatic hyperplasia) Bronchitis Diabetes mellitus, type 2 GERD (gastroesophageal reflux disease) Hyperlipidemia Hypertension Osteoarthritis Peptic ulcer disease HX Ulcerative colitis Surgical History History of cardiac cath 2012 and 2013 > for ekg changes History of cholecystectomy History of colonoscopy History of endoscopic sinus surgery History of heart artery stent 2013> [place] > 1 stent > follows Dr. 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 Beliefs That Will Affect Care: None marital status: Current Living Situation: Spouse current occupational status: retired Other Information That Helps Us Care for You: No Feels Safe at Home: Yes Safety Concerns: Feels Safe At This Time Assistive Devices: None Results & Data ([facility]) Vital Signs (Past 12 Hours) Vital Signs Temp Pulse Pulse Resp BP Pulse Ox O2 Del Method 05/27/22 15:46 36.9 C 75 18 150/77 H 97 Room Air 05/27/22 13:47 Room Air 05/27/22 10:52 36.6 C 85 18 119/56 L 98 Room Air 05/27/22 08:35 80 05/27/22 07:16 36.7 C 78 18 101/58 L 95 Room Air He is awake alert and oriented x3 he is in no acute distress he does not appear short of breath talking in sentences but is short of breath just walking in the hallway with his heart rate rapidly increasing from the mid 80s into the 130s and 140s. HEENT: 2+ carotid upstrokes nodes or carotid bruits Lungs: Clear to auscultation bilaterally no rales rhonchi or wheezing Heart: Tachycardic and irregular no appreciable murmurs Abdomen soft nontender nondistended positive bowel sounds Extremities no clubbing cyanosis or edema Psychiatric his affect appeared appropriate IMPRESSIONS: 1. Atrial flutter with a rapid ventricular response which is very symptomatic and difficult to control 2. Break in his outpatient anticoagulation due to nausea and vomiting 3. Recent viral illness and possible worsening prostatitis as an outpatient 4. Coronary disease status post angioplasty and stenting with a drug-eluting stent to the distal circumflex March 2010; known occlusion of OM 3 5. Negative stress echo for ischemia in June 2021 with frequent ventricular ectopy at peak exercise 6. History of paroxysmal atrial fibrillation 7. Echocardiogram 12/09/2020 with normal biventricular size and function and no significant valvular heart disease 8. Diabetes mellitus type 2 9. Hyperlipidemia 10. History of Lyme disease He is clearly symptomatic with his atrial flutter. He also has a history of atrial fibrillation as well. Given the fact he did not convert on his own and he is symptomatic I believe cardioversion is in his best interest. Given the fact that he missed anticoagulation over the last number of weeks due to his GI symptoms he will need a transesophageal echocardiogram prior to proceeding with cardioversion. This was discussed with Dr. Awan about any cardiology who will be able to do the procedure tomorrow with anesthesia. I did contact the Non Linear Editor to arrange for both the time and anesthesia appointment. Discussed the risk and benefits of JOYCE and cardioversion. We discussed risks including but not limited to 1 and 1000 risk heart attack stroke dying from the procedure less than 1% risk of stroke with cardioversion damage to his swallowing pipe sore throat esophageal perforation hypotension hypertension low heart rate fast heart rate. He understands the risk and wishes to proceed. He should remain on his anticoagulation and it should not be held prior to the procedure tomorrow. He should remain on his oral diltiazem. When in sinus rhythm he has not been excessively bradycardic. We discussed the success of cardioversion in the range of 90%. Staying in sinus rhythm is a different problem long-term. My hope is this was all just related to his recent illness and increased catecholamine state. If not given the fact he has had A-fib in the past we would have to consider either antiarrhythmic therapy or an atrial flutter/A-fib combined ablation. His shortness of breath is likely related to the loss of his atrial kick and his fast heart rate. As I discussed with him this is another reason to get him back into sinus rhythm to improve his dyspnea and improve his functional capacity. His troponins were negative on upon admission and there is nothing to suggest an acute coronary syndrome. He will be made n.p.o. after midnight. This was discussed with the patient, the Non Linear Editor, Dr. Awan, and the nursing staff. Assuming he has a successful JOYCE cardioversion he could be discharged 2 to 4 hours after the procedure.
[2022-05-27] MEDS: [UNRECOGNIZED DRUG - REMARK] SCH ×2 (16:57→23:47)
[2022-05-27] MEDS: FENOFIBRATE NANOCRYSTALLIZED 48 MG TABLET PO SCH (20:39)
[2022-05-27] MEDS: dilTIAZem HCL 240 MG CAPCR PO SCH (20:40)
[2022-05-27] MEDS: TAMSULOSIN HCL 0.4 MG CAP PO SCH (20:40)
[2022-05-28 06:35] LABS: Hematocrit (blood only) 37.9 % (42.0-52.0); Hemoglobin 12.9 g/dl (14.0-18.0); Mean Corpuscular Hemoglobin 30.1 pg (25.0-34.0); Mean Corpuscular Volume 88.3 fL (80.0-100.0); Mean Platelet Volume 10.2 fL (9.4-12.4); Platelet Count 354 K/uL (130-400); RDW Coefficient of Variation 12.6 % (11.5-14.5); RDW Standard Deviation 40.8 fL (36.4-46.3); Red Blood Count 4.29 M/uL (4.70-6.10); White Blood Count 7.14 K/ul (4.8-10.8)
[2022-05-28 07:01] LABS: BUN Creatinine Ratio 17.4 (10-20); Creatinine Clr Calc Pharmacy 69.2 ml/min; Est GFR (African American) 79.3 ml/min; Est GFR (Non-African American) 68.4 ml/min; Potassium 4.5 mmol/L (3.5-5.1)
--- NOTE | 2022-05-28 07:57 | Anesthesiology Consultation ---
Date of Service May 28, 2022 Assessment & Plan Chart Review Chart Review: Acceptable Risk for Surgery and Patient NOT seen in Pre Admission Testing Consults Requested none ASA ASA3 Proposed Anesthesia Anesthesia Type: MAC Risk / Benefits Reviewed With: PT / POA / Parent / Guardian, Accepts Plan and Informed Consent Obtained History Surgery Operation Date: 05/28/22 08:00 Proposed Procedures p Transesophageal Echo w/Anesthesia - Rj Awan MD s Cardioversion Product Accountant w/Anesthesia - Rj Awan MD Height/Weight Height: 6 ft Weight: 92.8 kg Allergies Allergy/AdvReac Type Severity Reaction Status Date / Time trovafloxacin [From Trovan] Allergy Unknown Unknown Verified 05/26/22 13:55 Quinolones AdvReac Intermediate HYPEREOSINO Verified 05/26/22 13:55 PHILIA Mxblsnw-JDF-LfB Reductase AdvReac Intermediate HYPEREOSINO Verified 05/26/22 13:55 Inhibitor PHILIA [Ttwjpop-Yrw-Thr Reductase Inhibitor] NSAIDS (Non-Steroidal AdvReac Unknown SENSITIVITY Verified 05/26/22 13:55 Anti-Inflamma R/T HX EOSINOPHILIA Medications Home Medications Medication Instructions Recorded Confirmed Last Taken albuterol sulfate 90 mcg/actuation 2 puff inhalation Q4H PRN 02/24/19 05/26/22 05/30/19 aerosol inhaler (Ventolin HFA) Shortness Of Breath Or Wheezing cholecalciferol (vitamin D3) 25 1,000 unit PO Q OTHER DAY 02/24/19 05/26/22 05/24/22 mcg (1,000 unit) chewable tablet (Vitamin D3) cyanocobalamin (vitamin B-12) 500 500 mcg PO QPM 02/24/19 05/26/22 05/26/22 mcg tablet (Vitamin B-12) duloxetine 30 mg capsule,delayed 30 mg PO QAM 02/24/19 05/26/22 05/26/22 release (Cymbalta) fenofibrate micronized 67 mg 67 mg PO QPM 02/24/19 05/26/22 05/26/22 capsule insulin detemir U-100 100 unit/mL 42 unit subcut PM 02/24/19 05/26/22 05/26/22 subcutaneous solution (Levemir U-100 Insulin) krill 1,000 mg-omega-3 170 mg-dha 1 cap PO QAM 02/24/19 05/26/22 05/26/22 50 mg-epa 80 [id number]-cfuav capsule (krill oil) lisinopril 20 mg tablet 20 mg PO QAM 02/24/19 05/26/22 05/26/22 tamsulosin 0.4 mg capsule (Flomax) 0.4 mg PO QPM 02/24/19 05/26/22 05/25/22 mesalamine 0.375 gram 0.75 g PO QPM 05/01/19 05/26/22 05/26/22 capsule,extended release 24 hr (Apriso) ascorbic acid (vitamin C) 500 mg 500 mg PO DAILY 06/14/20 05/26/22 05/26/22 tablet (Vitamin C) famotidine 40 mg tablet 40 mg PO DAILY 06/14/20 05/26/22 05/26/22 metformin 500 mg tablet,extended 1,000 mg PO BID 06/14/20 05/26/22 05/26/22 release 24 hr apixaban 5 mg tablet (Eliquis) 5 mg PO BID 08/10/20 05/26/22 05/26/22 aspirin 81 mg tablet,delayed 81 mg PO QAM 08/10/20 05/26/22 05/26/22 release sulfamethoxazole 800 1 tab PO BID #30 tabs 04/28/21 05/26/22 05/26/22 mg-trimethoprim 160 mg tablet (Bactrim DS) diltiazem HCl 240 mg 240 mg PO QPM 05/26/22 05/26/22 05/25/22 capsule,extended release 24 hr repaglinide 2 mg tablet 2 mg PO QPM 05/26/22 05/26/22 05/25/22 Active Medications Generic Name Dose Route Start Last Admin Trade Name Freq PRN Reason Stop Dose Admin Apixaban 5 mg 05/26/22 21:00 05/27/22 20:39 Apixaban 5 Mg Tablet PO 06/25/22 20:59 5 mg BID REY Administration Aspirin 81 mg 05/27/22 09:00 05/27/22 10:50 Aspirin 81 Mg Ectab PO 06/26/22 08:59 81 mg QAM REY Administration Diltiazem HCl 240 mg 05/26/22 21:00 05/27/22 20:40 Diltiazem Hcl 240 Mg Capcr PO 06/25/22 20:59 240 mg QPM REY Administration Duloxetine HCl 30 mg 05/27/22 09:00 05/27/22 10:51 Duloxetine Hcl 30 Mg Cap PO 06/26/22 08:59 30 mg QAM REY Administration Famotidine 40 mg 05/27/22 09:00 05/27/22 10:50 Famotidine 40 Mg Tablet PO 06/26/22 08:59 40 mg DAILY REY Administration Fenofibrate 48 mg 05/26/22 21:00 05/27/22 20:39 Fenofibrate Nanocrystallized 48 Mg Tablet PO 06/25/22 20:59 48 mg QPM REY Administration Fluticasone Propionate 2 sprays 05/27/22 09:00 05/27/22 20:42 Fluticasone Propionate Na Spr 16 Gm Btl NA 06/26/22 08:59 2 sprays BID REY Administration Insulin Aspart 0 units 05/26/22 16:30 05/27/22 20:53 Insulin Aspart Per Unit SC 06/25/22 16:29 2 units ACHS REY Administration Insulin Glargine 20 units 05/26/22 21:00 05/27/22 20:52 Lantus Per Unit Charge SQ 06/25/22 20:59 20 units BID REY Administration Metoprolol Tartrate 5 mg 05/26/22 16:55 05/26/22 22:50 Metoprolol Tartrate 1 Mg/Ml Vial IV 5 mg Q5M PRN Administration Tachycardia Sustained >130 Miscellaneous 1 each 05/27/22 17:15 05/27/22 23:47 Order Awaiting Action: Mesalamine [Apriso] 0.375 Gram Capsule,Extended Release 24hr N/A 06/26/22 17:14 Not Given QS REY Tamsulosin HCl 0.4 mg 05/26/22 21:00 05/27/22 20:40 Tamsulosin Hcl 0.4 Mg Cap PO 06/25/22 20:59 0.4 mg QPM REY Administration Trimethoprim/Sulfamethoxazole 1 tab 05/26/22 21:00 05/27/22 20:44 Sulfamethoxazole/Trimethoprim Ds 800/160mg Tab PO 06/05/22 20:59 1 tab Q12 REY Administration NPO Date Last Intake of Fluids: 05/27/22 Date Last Intake of Solids: 05/27/22 Past Medical History Medical History Anxiety Arthritis Asthma uses res. inh approx once daily Atrial fibrillation dx: 4 yrs ago > [facility] > no pacer/cardioversion BPH (benign prostatic hyperplasia) Bronchitis Diabetes mellitus, type 2 GERD (gastroesophageal reflux disease) Hyperlipidemia Hypertension Osteoarthritis Peptic ulcer disease HX Ulcerative colitis Exercise / Class Metabolic Activity II 4-5 Yardwork/Stairs/Walk up hill Past Family History Family History Mother Colon cancer Father Heart disease Stroke Sister Heart disease Past Surgical History Surgical History History of cardiac cath 2012 and 2013 > for ekg changes History of cholecystectomy History of colonoscopy History of endoscopic sinus surgery History of heart artery stent 2013> Nixon > 1 stent > follows Dr. Snow [facility] Hx of left cataract extraction Hx of neck surgery fusion > Nixon > C6,7 > ROM IS GOOD PER PATIENT S/P cholecystectomy 2008 Past Anesthesia History No Hx of Anesthesia Complications and No Family Hx of Anesthesia Complications History of PONV No Hx of PONV and No Hx of Motion Sickness Social History Smoking Status: Never smoker tobacco type: smokeless tobacco Do You Dip or Chew Tobacco: Yes Hx Alcohol Use: Yes Alcohol type: beer, wine and hard liquor alcohol intake frequency: a few times a month Hx Substance Use: No substance use type: does not use Review of Systems ROS Unobtainable: All systems reviewed & are unremarkable except as noted in HPI & below Constitutional: as per Subjective / HPI, + fatigue and + problem reported Eyes: as per Subjective / HPI Ear, Nose, Mouth, Throat: as per Subjective / HPI Respiratory: + dyspnea on exertion Cardiovascular: + dyspnea on exertion and + palpitations Gastrointestinal: as per Subjective / HPI Genitourinary (Male): + as per Subjective / HPI Musculoskeletal: as per Subjective / HPI Integumentary: as per Subjective / HPI Neurologic: as per Subjective / HPI Psychiatric: as per Subjective / HPI Endocrine: as per Subjective / HPI Hematologic / Lymphatic: as per Subjective / HPI Allergy / Immunological: as per Subjective / HPI Physical Exam Vital Signs Last Vital Signs Temp 36.8 C 05/28/22 07:10 Pulse 124 H 05/28/22 07:49 Resp 16 05/28/22 07:49 BP 144/97 H 05/28/22 07:49 Pulse Ox 97 05/28/22 07:49 O2 Del Method Room Air 05/28/22 07:49 Constitutional WD/WN, vitals as above Eyes PERRL, conjunctivae normal, anicteric sclerae ENMT external ear and nose normal, oropharynx normal Mouth: no dentition abnormality Thyromental Distance: > or= 3.5 Finger Breadths Mallampati Class: II Neck trachea midline, no thyromegaly Respiratory normal respiratory effort, lungs clear to auscultation normal respiratory effort Auscultation: lungs clear to auscultation bilaterally Cardiovascular RRR, no murmur, no edema Rate/Rhythm: regular rhythm (irregular) and + tachycardic Musculoskeletal Head/Neck/Chest: normocephalic and head atraumatic Spine: normal cervical ROM and no pain with cervical ROM Extremities: extremities normal to inspection and strength 5/5 throughout; full ROM of extremities Skin no rashes, warm and dry Neurologic moves all extremities Psychiatric A+Ox3, euthymic affect Testing Laboratory Results 05/28/22 05:54 05/28/22 05:54 PT 10.9 Seconds (9.0-12.0) 05/26/22 11:38 INR 1.0 (0.9-1.1) 05/26/22 11:38 APTT 30.2 Seconds (21.0-31.0) 05/26/22 11:38 Urine Color Yellow 05/26/22 12:57 Urine Appearance Clear (Clear) 05/26/22 12:57 Urine pH 5.0 (4.5-7.5) 05/26/22 12:57 Ur Specific [place] 1.027 (1.000-1.030) 05/26/22 12:57 Urine Protein Negative (Negative) 05/26/22 12:57 Urine Glucose (UA) 3+ (Negative) H 05/26/22 12:57 Urine Ketones Negative (Negative) 05/26/22 12:57 Urine Nitrite Negative (Negative) 05/26/22 12:57 Ur Leukocyte Esterase Negative (Negative) 05/26/22 12:57 05/28/22 05/27/22 07:01 20:08 POC Glucose 180 H 169 H
[2022-05-28] MEDS: [UNRECOGNIZED DRUG - REMARK] SCH (08:49)
--- NOTE | 2022-05-28 08:57 | Anesthesiology Progress Note ---
Date of Service May 28, 2022 Anesthesia Post Procedure Vital Signs Vital Signs: Temp Pulse Pulse Resp BP Pulse Ox Pulse Ox 05/28/22 07:49 124 H 16 144/97 H 97 05/28/22 07:10 36.8 C 125 H 18 113/71 98 05/28/22 01:00 96 05/28/22 03:00 36.7 C 65 18 123/84 95 05/27/22 23:00 70 05/27/22 22:00 36.7 C 90 18 110/70 97 05/27/22 19:00 36.8 C 86 18 131/89 93 05/27/22 15:46 36.9 C 75 18 150/77 H 97 05/27/22 13:47 05/27/22 10:52 36.6 C 85 18 119/56 L 98 O2 Del Method O2 Del Method 05/28/22 07:49 Room Air 05/28/22 07:10 Room Air 05/28/22 01:00 Room Air 05/28/22 03:00 Room Air 05/27/22 23:00 05/27/22 22:00 Room Air 05/27/22 19:00 Room Air 05/27/22 15:46 Room Air 05/27/22 13:47 Room Air 05/27/22 10:52 Room Air Transfer of Care Handoff Completed per policy Notes Mental Status: alert / awake / arousable and participated in evaluation Patient Amnestic to Procedure: Yes Nausea / Vomiting: adequately controlled Pain: adequately controlled Airway Patency, RR, SpO2: stable & adequate BP & HR: stable & adequate Hydration State: stable & adequate Anesthetic Complications: no major complications apparent and Pt Satisfied with anesthetic care
[2022-05-28] MEDS ORDERED: PROPOFOL IV EMULSION 10 MG/ML 20 ML VIAL IV ONE (08:59)
[2022-05-28] MEDS ORDERED: LIDOCAINE 2% MPF LOCAL 5 ML VIAL INFIL ONE (08:59)
[2022-05-28] MEDS: INSULIN ASPART PER UNIT SC SCH ×2 (09:41→12:23)
[2022-05-28] MEDS: LANTUS PER UNIT CHARGE SQ SCH (09:41)
[2022-05-28] MEDS: SULFAMETHOXAZOLE/TRIMETHOPRIM DS 800/160MG TAB PO SCH (10:27)
[2022-05-28] MEDS: DULoxetine HCL 30 MG CAP PO SCH (10:28)
[2022-05-28] MEDS: ASPIRIN 81 MG ECTAB PO SCH (10:28)
[2022-05-28] MEDS: APIXABAN 5 MG TABLET PO SCH (10:29)
[2022-05-28] MEDS: FLUTICASONE PROPIONATE NA SPR 16 GM BTL SCH (10:29)
[2022-05-28] MEDS: FAMOTIDINE 40 MG TABLET PO SCH (10:29)
--- NOTE | 2022-05-28 11:15 | XCELERA ---
[id number] \\[id number]
--- NOTE | 2022-05-28 12:28 | Electrocardiogram Report ---
Test Reason : Blood Pressure : / mmHG Vent. Rate : 092 BPM Atrial Rate : 092 BPM P-R Int : 192 ms QRS Dur : 096 ms QT Int : 354 ms P-R-T Axes : 060 050 075 degrees QTc Int : 437 ms Normal sinus rhythm Poor R wave progression, consider anterior GA vs. lead placement vs. LVH Abnormal ECG When compared with ECG of 26-MAY-2022 11:26, Sinus rhythm has replaced Atrial flutter HR has decreased by 28 bpm Confirmed by Rj Awan ([id number]) on 05/28/2022 12:27:54 PM Referred By: Serafin Hein Confirmed By:Rj Awan
--- NOTE | 2022-05-28 13:08 | Discharge Summary ---
Date of Service May 28, 2022 Admission HPI Per Admitting Provider Ryan Guerrero is a 71-year-old male with past medical history of atrial flutter, type II DM, ulcerative colitis, mild persistent allergic asthma, hypertension, dyslipidemia, depression, family history of colon cancer who presents on referral from PCP for rapid A-fib/a flutter. Patient said 1 week of fatigue, generalized weakness, and recent weight loss and was found to be tachycardic on PCP assessment. Ryan presents to the emergency department on referral from his PCP. He notes that he has felt very poor for about 2 weeks with night sweats, headache, joint aches, reduced urination, suprapubic pressure and general unwellness. About 4 days prior to becoming unwell he did have a tick in his groin which he removed. Patient did have a prostate exam at his PCP due to feeling of swelling, patient was noted to have a smooth, enlarged prostate tender to palpation suspicious for prostatitis earlier today. Patient felt that he has gradually improved since taking Bactrim which she was prescribed 1 year ago after a UroLift. He did not have a urine sample collected for culture prior to starting Bactrim, but does feel he is gradually improved with this although has been eating poorly. At his PCP office he was found to have a rapid heart rate of up to 150 and was recommended for ER evaluation. He does have a history of A-fib anticoagulated with Eliquis which he has taken twice daily but did miss a few doses last week. He has not missed any doses in the last 5 days. He reports he has felt much more fatigued in the last week. He has not had any chest pain, chest pressure. He has not passed out or felt like he was going to pass out, but does have easy fatigue and no energy. He is not short of breath, no cough, no congestion No leukocytosis Hemoglobin 13.9, at baseline for patient MCV 90 BSG 373 Sodium 132, potassium 4.5, creatinine is with baseline of approximate 21.3, 1.35 on admission CRP 1.46 Patient recently diagnosed with prostatitis with a positive Pro-Patrick TSH A flutter Medications reviewed and reconciled against PCP records Apixaban 5 mg twice daily Aspirin 81 mg daily Cardizem to 40 extended release in the evening Duloxetine 30 mg daily Fenofibrate 67 mg daily Flonase as needed Levemir 40 units daily Lisinopril 20 mg daily Mesalamine 0.75 g every morning Metformin XR 1 g twice daily Albuterol as needed Repaglinide 2 mg twice daily Flomax 0.4 mg daily Vitamin B, vitamin C, vitamin D Tylenol as needed Medical History: Reviewed Medications: Reviewed Surgical History: Reviewed Family history: Reviewed Allergies: Reviewed Social History: Uses chew tobacco a pack ranges from lasting a day to several days. Denies regular alcohol use. Code Status: Full code Principal Diagnosis a flutter Discharge Exam The patient is awake, alert and oriented 3, well developed and well nourished, normocephalic and atraumatic, lying in bed and in no acute distress. HEENT--PERRL, EOMI, mucous membranes and oropharynx mildly dry Neck--supple. No JVD. No bruits. Thyroid normal, trachea midline, no adenopathy. Heart--irregular Lungs--clear bilaterally, no respiratory distress, no accessory muscle use. Abdomen--normal bowel sounds and soft. Mild epigastric and left sided abdominal pain Extremities--no cyanosis or clubbing. No edema. Dermatologic--normal skin turgor, normal color, no abnormal lymph nodes, no rash. Neurologic--cranial nerves II through XII grossly intact. Rheumatologic--normal range of motion. Psychiatric--normal affect. Discharge Data Allergies Allergy/AdvReac Type Severity Reaction Status Date / Time trovafloxacin [From Trovan] Allergy Unknown Unknown Verified 05/26/22 13:55 Quinolones AdvReac Intermediate HYPEREOSINO Verified 05/26/22 13:55 PHILIA Fimovdt-UEK-YhH Reductase AdvReac Intermediate HYPEREOSINO Verified 05/26/22 13:55 Inhibitor PHILIA [Bthrizd-Vwi-Diz Reductase Inhibitor] NSAIDS (Non-Steroidal AdvReac Unknown SENSITIVITY Verified 05/26/22 13:55 Anti-Inflamma R/T HX EOSINOPHILIA Consultations 05/26/22 13:24 ED Decision to Admit Stat 05/27/22 10:32 Consult Cardiology Routine Procedures Performed Operation Date: 05/28/22 08:00 Actual Procedures p Cardioversion - Rj Awan MD s Echo Doppler Complete - Rj Awan MD s Echo Color Flow - Rj Awan MD s Echo Transesophageal - Rj Awan MD Hospital Course (1) Atrial flutter: Atrial fibrillation/flutter Now s/p JOYCE and cardioversion Patient curretly in sinus rhythm symptoms have resolved Continue anticoagulation and cardizem PO Follow up with cardiology (2) Prostatitis: BPH, prostatitis Exam consistent with prostatitis at PCP Patient did start Bactrim at home prior to UA/UC being collected with leftover pill in pocket prescription, gradually improving on this We will continue Bactrim p.o. twice daily for prostatitis, will need course extended for 4 to 6 weeks Repeat urine collected, likely to be sterile due to antibiotic use No leukocytosis, hemodynamically stable, does not appear septic (3) Tick bite: Tick bite Tick panel pending (4) Diabetes mellitus: Type II DM Based on home basal 40: Lantus 20 twice daily, CF 20, ratio 7 Hyperglycemic on admission, 5 units IV insulin given in ER Fluids given, basal bolus placed as above Goal BSG [id number] Trended (5) Asthma: Asthma No acute exacerbation Albuterol as needed (6) Crohn disease: Crohn's disease Continue mesalamine Last colonoscopy within 1 year, polyp removed otherwise normal per patient No acute bleeding/melena/hematochezia, hemoglobin near baseline (7) Diabetes mellitus, type 2: (8) Anxiety: (9) Benign localized hyperplasia of prostate with urinary obstruction: (10) GERD (gastroesophageal reflux disease): (11) Hyperlipidemia: Plan DVT prophylaxis: Anticoagulated on Eliquis Diet: Clears, n.p.o. at midnight in case cardioversion is required Disposition: Telemetry CODE STATUS: Full code Total Time Total Time Spent Total Time Spent (In Minutes): 35 Discharge Plan Discharge Items Patient Disposition: Home - Self-Care Reason For Visit: HIGH HEART RATE, REF BY DOC Discharge Diagnosis: atrial flutter Activity: Resume your previous activity Non-emergency contact: Primary Care Provider and Assessment Nurse Call non-emergency contact if: you have any medication questions Follow-up/Referrals: Serafin Hein MD [Primary Care Provider] - 06/01/22 1:05 pm (will be seen by Dr. Vick) Diet: Regular Addtl Attending Provider Instructions: please make appointment to follow up with your junior media buyer Also check your BMP every week because Bactrim can effect your kidney function and potassium levels Pending Studies at Discharge: No Stand-Alone Forms: [place], Smoking Cessation Medications and DC Order Prescriptions: New sulfamethoxazole-trimethoprim [Bactrim DS] 800-160 mg Tablet 1 tab PO Q12 18 Days Qty: 36 0RF Continued lisinopril 20 mg Tablet 20 mg PO QAM fenofibrate micronized 67 mg Capsule 67 mg PO QPM cyanocobalamin (vitamin B-12) [Vitamin B-12] 500 mcg Tablet 500 mcg PO QPM tamsulosin [Flomax] 0.4 mg Capsule 0.4 mg PO QPM albuterol sulfate [Ventolin HFA] 90 mcg/actuation Hfa Aerosol Inhaler 2 puff INHALATION Q4H PRN (Reason: Shortness Of Breath Or Wheezing) duloxetine [Cymbalta] 30 mg Capsule,Delayed Release(Dr/Ec) 30 mg PO QAM Levemir U-100 Insulin 100 unit/mL Solution 42 unit SUBCUT PM cholecalciferol (vitamin D3) [Vitamin D3] 1,000 unit Tablet,Chewable 1,000 unit PO Q OTHER DAY Rx Instructions: HS krill oil 1,066-484-42-80 mg Capsule 1 cap PO QAM mesalamine [Apriso] 0.375 gram Capsule,Extended Release 24hr 0.75 g PO QPM aspirin 81 mg Tablet,Delayed Release (Dr/Ec) 81 mg PO QAM Eliquis 5 mg tablet 5 mg PO BID famotidine 40 mg tablet 40 mg PO DAILY ascorbic acid (vitamin C) [Vitamin C] 500 mg Tablet 500 mg PO DAILY metformin 500 mg tablet extended release 24 hr 1,000 mg PO BID diltiazem HCl 240 mg capsule,extended release 24hr 240 mg PO QPM repaglinide 2 mg tablet 2 mg PO QPM Discontinued sulfamethoxazole-trimethoprim [Bactrim DS] 800-160 mg tablet 1 tab PO BID Qty: 30 0RF Discharge Orders: Discharge Order (Routine); Ordered 05/28/22 Ordered By: Symone Louis Admission Data Admit Date/Time: 05/26/22 14:05 Attending Provider: Symone Louis Admit Provider: Duke Petersen Primary Care Provider: Serafin Hein Other Providers: Duke Petersen ; Blu Almonte Other Interventions: Discharge Summary Assessment (RN) Last Done: 03/09/23 11:25 Coding Level of Care Code 83109 INP/OBS DISCH >30 MIN Diagnoses Atrial flutter I48.92 Prostatitis N41.9 Tick bite W57.XXXA Diabetes mellitus E11.9 Asthma J45.909 Crohn disease K50.90 Diabetes mellitus, type 2 E11.9 Anxiety F41.9 Benign localized hyperplasia of prostate with urinary obstruction N40.1; N13.8 GERD (gastroesophageal reflux disease) K21.9 Hyperlipidemia E78.5 Time Spent (min) 35
--- NOTE | 2022-05-28 13:26 | Cardioversion ---
Date of Service May 28, 2022 PG Electrical Cardioversion Rp Electrical Cardioversion Report Indication: Atrial flutter Written consent was obtained after the risks and benefits were explained, including but not limited to pain, thermal burn, allergic reaction, aspiration, airway obstruction, laryngospasm, infection, hypotension, and cardiorespiratory arrest. A time out was taken and the correct patient and procedure identified. Sedation was achieved under the supervision of anesthesiology. The biphasic defibrillator was set to 50 joules of energy and synched. After confirmation of sedation and "all clear" safety check the synchronized shock was delivered. This resulted in successful conversion of atrial flutter into sinus rhythm. See nursing notes for dosages and times. There were no complications and the patient recovered uneventfully from the procedure. Coding Level of Care Code 08783 CARDIOVERSION, ELECTIVE Additional Codes Electrical Cardioversion Report ([id number])
[2022-05-31 15:07] LABS: Ehrlichia chaff DNA Bld Negative (Negative)
[2022-06-02 18:27] LABS: Babesia microti DNA Not Detected (Not Detected); Q Fever IgG, Phase I NEGATIVE; Q Fever Phase I IgM Antibody NEGATIVE; Q Fever Phase II IgG Antibody NEGATIVE; Q Fever Phase II IgM Antibody NEGATIVE; R. typhi IgG Ab NOT DETECTED; R. typhi IgM Ab NOT DETECTED; RMSF IgG Ab NOT DETECTED; RMSF IgM Ab NOT DETECTED
== END 2022-05-28 13:37 | disposition home or self-care (01) ==
LOC: 2S 11:19 → ED 11:19 → SUATTDRO 14:05 → 2S 15:45

== ENCOUNTER 2022-07-18 07:50 | Observation (INO) ==
[2022-07-18] MEDS ORDERED: SODIUM CHLORIDE 0.9% 1000ML 1,000 ML IV ONE (07:58)
[2022-07-18] MEDS ORDERED: MoRPHine SULFATE 2 MG/ML CARP IV STA (08:15)
--- NOTE | 2022-07-18 08:21 | Emergency Department Note ---
Impression & Plan Pulmonary emboli, GERD (gastroesophageal reflux disease), Chest pain, Elevated troponin, History of cardiac radiofrequency ablation, Back pain ED Provider Note NAME: GEN RUIZ AGE: 72 SEX: M ARRIVES VIA: Walk-In INFORMANT: Patient ED PROVIDER(S): Denzel Andrews MD CHIEF COMPLAINT: chest/back pain. PLAN: Disposition: Admit MEDICAL DECISION MAKING: The patient is a pleasant 72-year-old gentleman with a past medical history of atrial fibrillation/atrial flutter on Eliquis, hypertension, hyperlipidemia, GERD, anxiety, type 2 diabetes who presents to the emergency department via walk-in, coming by his for evaluation of ongoing and worsening chest and back pain that is worse with inspiration that began yesterday around 1 PM in the setting of [place] [facility] [place] a cardiac ablation the day before for his atrial fibrillation. The patient reports he was under general anesthesia and they did observe him overnight. He understands the ablation was uneventful. He denies any fevers, chills, cough, GI or symptoms. On arrival the patient is uncomfortable no acute distress, afebrile with BP 140s/60s and otherwise stable vital signs. He appears clinically dry. He exhibits reproducible anterior chest wall and thoracic discomfort without discrete tenderness. EKG without overt acute ischemia. CXR negative for acute cardiopulmonary process. WBC and platelets within normal limits. H/H similar to prior range of values. Chemistry without metabolic acidosis. Magnesium 1.4 electrolytes otherwise unremarkable. AST 52, nonspecific and similar to prior values. LFTs otherwise unremarkable. Initial high-sensitivity troponin 414 with delta 2-hour high- sensitivity troponin 370, nonspecific and in the setting of the patient's recent radiofrequency ablation. CTA of the chest was performed and was negative for acute aortic pathology. There is no CT evidence of pericardial effusion. Note is made of segmental and subsegmental pulmonary emboli within the branches of the right lower lobe pulmonary artery. Trace pleural effusions are noted. Findings were reviewed with the patient and he does report that he was instructed to hold his Eliquis prior to his admission and scheduled ablation. He reports they initiated heparin upon his admission however suspect a degree of disruption to his anticoagulation likely is related to his pulmonary emboli. Heparin bolus and drip ordered with standard protocol. Of note, the patient was treated initially with IV morphine and had only brief and minimal improvement in his pain which he described as a burning throughout his chest that was bilateral and did not seem to be fully explained by his right sided pulmonary emboli. He further described feeling the sensation of it going up his throat. This sensation was present regardless of positioning whether supine or sitting up. Given the patient's history of GERD with his recent procedure involving endotracheal intubation and JOYCE suspicion for possible component of acid reflux/esophagitis and potentially eosinophilic esophagitis. Thus trial of oral dexamethasone and Carafate in addition to IV Pepcid were administered. Patient and his agree with plan for admission for further treatment and evaluation. Case was discussed with Dr. Petersen, [facility] hospitalist, who will evaluate the patient for admission. Triage Nursing notes reviewed and agree them. Prior/outside medical records reviewed Vital Signs: reviewed Differential diagnosis: Cardiac ischemia, aortic dissection, pulmonary embolism, pneumothorax, pneumonia, pericarditis, myocarditis, esophageal rupture, GERD, cholecystitis, pancreatitis, musculoskeletal, as well as other pathologies. ER treatment provided: See below. Diagnostics interpreted by me: ECG: Sinus rhythm first-degree block, 73 bpm, no ectopy, no overt ST elevation or depression, no MT depression, negative Spodick's sign QTc 445, QTc 104. Cardiac Monitoring: An order for continuous cardiac monitoring was placed and demonstrated Sinus rhythm first-degree block, 73 bpm, no ectopy. Laboratory studies: See below Imaging studies: See below Consultations: Dr. Petersen, [facility] hospitalist HPI: The patient is a pleasant 72-year-old gentleman with a past medical history of atrial fibrillation/atrial flutter on Eliquis, hypertension, hyperlipidemia, GERD, anxiety, type 2 diabetes who presents to the emergency department via walk-in, coming by his for evaluation of ongoing and worsening chest and back pain that is worse with inspiration that began yesterday around 1 PM in the setting of being discharged [place] [facility] [place] after a cardiac ablation the day before for his atrial fibrillation. The patient reports he was under general anesthesia and they did observe him overnight. He understands the ablation was uneventful. He denies any fevers, chills, cough, GI or symptoms. ROS: See above HPI for pertinent positives & negatives. A total of 10 systems reviewed and were otherwise negative. VITALS:See Below PHYSICAL EXAMINATION: GENERAL: Awake, alert, uncomfortable-appearing, in no distress HENT: Normocephalic, atraumatic. Oropharynx with dry mucous membranes and otherwise unremarkable. EYES: Normal conjunctiva. Sclera non-icteric. NECK: Supple. No nuchal rigidity. FROM. No JVD. RESPIRATORY: Clear to auscultation. CARDIAC: Regular rate, normal rhythm. Extremities warm and well perfused. Pulses equal. ABDOMEN: Soft, non-distended. No tenderness to palpation. No rebound or guarding. No masses. RECTAL: Deferred. MUSCULOSKELETAL: Reproducible anterior chest wall and thoracic discomfort without discrete tenderness. The back is symmetrical on inspection without obvious abnormality. There is no CVA tenderness to palpation. No joint edema. LOWER EXTREMITIES: Calves are equal size bilaterally and non-tender. No edema. No discoloration. NEURO: Normal sensorium. No sensory or motor deficits noted. SKIN: No rash or jaundice noted. ED COURSE: Critical Care: I have personally spent greater than 35 minutes of critical care time in the direct management of this patient. This includes bedside care, interpretation of diagnostic studies, and testing, discussion with consultants, patient, and family members, and other required patient management activities. This 35 minutes is in excess of all separately billable procedures. Denzel Andrews MD Past Med/Surg History Medical History (Updated 07/18/22 @ 22:39 by Denzel Andrews MD) Anxiety Arthritis Asthma uses res. inh approx once daily Atrial fibrillation dx: 4 yrs ago > [facility] > no pacer/cardioversion BPH (benign prostatic hyperplasia) Bronchitis Diabetes mellitus, type 2 GERD (gastroesophageal reflux disease) Hyperlipidemia Hypertension Leukoplakia of tongue Osteoarthritis Peptic ulcer disease HX Tongue dysplasia Ulcerative colitis Surgical History (Updated 07/18/22 @ 22:29 by Denzel Andrews MD) History of cardiac cath 2012 and 2013 > for ekg changes History of cholecystectomy History of colonoscopy History of endoscopic sinus surgery History of heart artery stent 2014> Sinclair > 1 stent > follows Dr. [facility] Hx of left cataract extraction Hx of neck surgery fusion > Sinclair > C6,7 > ROM IS GOOD PER PATIENT S/P cholecystectomy 2008 Family History Mother Colon cancer Father Heart disease Stroke Sister Heart disease Social History Smoking Status: Never smoker Tobacco Type: Cigarettes Second Hand Exposure: No; Do You Dip or Chew Tobacco: Yes; Tobacco Cessation Education Requested by Patient: No Hx Alcohol Use: Yes Alcohol type: beer, wine and hard liquor Hx Substance Use: No Preferred Language: Turkmen Communication Ability: Effective Parachute Inspector Required: No Beliefs That Will Affect Care: None marital status: Current Living Situation: Spouse current occupational status: retired Other Information That Helps Us Care for You: No Feels Safe at Home: Yes Safety Concerns: Feels Safe At This Time Assistive Devices: Glasses Allergies Allergies Allergy/AdvReac Type Severity Reaction Status Date / Time trovafloxacin [From Trovan] Allergy Unknown Unknown Verified 06/12/22 09:00 Quinolones AdvReac Intermediate HYPEREOSINO Verified 06/12/22 09:00 PHILIA Afhqygu-LVE-BbK Reductase AdvReac Intermediate HYPEREOSINO Verified 06/12/22 09:00 Inhibitor PHILIA [Tuwwdwm-Wpj-Wvf Reductase Inhibitor] NSAIDS (Non-Steroidal AdvReac Unknown SENSITIVITY Verified 06/12/22 09:00 Anti-Inflamma R/T HX EOSINOPHILIA Home Meds Home Medications Medication Instructions Recorded Confirmed albuterol sulfate 90 mcg/actuation 2 puff inhalation Q4H PRN 02/24/19 07/18/22 aerosol inhaler (Ventolin HFA) Shortness Of Breath Or Wheezing cholecalciferol (vitamin D3) 25 1,000 unit PO Q OTHER DAY 02/24/19 07/18/22 mcg (1,000 unit) chewable tablet (Vitamin D3) cyanocobalamin (vitamin B-12) 500 500 mcg PO QPM 02/24/19 07/18/22 mcg tablet (Vitamin B-12) duloxetine 30 mg capsule,delayed 30 mg PO QAM 02/24/19 07/18/22 release (Cymbalta) fenofibrate micronized 67 mg 67 mg PO QPM 02/24/19 07/18/22 capsule insulin detemir U-100 100 unit/mL 46 unit subcut PM 02/24/19 07/18/22 subcutaneous solution (Levemir U-100 Insulin) krill 1,000 mg-omega-3 170 mg-dha 1 cap PO QAM 02/24/19 07/18/22 50 mg-epa 80 [id number] capsule (krill oil) lisinopril 20 mg tablet 20 mg PO QAM 02/24/19 07/18/22 tamsulosin 0.4 mg capsule (Flomax) 0.4 mg PO QPM 02/24/19 07/18/22 mesalamine 0.375 gram 0.75 g PO QPM 05/01/19 07/18/22 capsule,extended release 24 hr (Apriso) ascorbic acid (vitamin C) 500 mg 500 mg PO DAILY 06/14/20 07/18/22 tablet (Vitamin C) famotidine 40 mg tablet 40 mg PO DAILY 06/14/20 07/18/22 metformin 500 mg tablet,extended 1,000 mg PO BID 06/14/20 07/18/22 release 24 hr apixaban 5 mg tablet (Eliquis) 5 mg PO BID 08/10/20 07/18/22 aspirin 81 mg tablet,delayed 81 mg PO QAM 08/10/20 07/18/22 release diltiazem HCl 240 mg 240 mg PO QPM 05/26/22 07/18/22 capsule,extended release 24 hr repaglinide 2 mg tablet 0 mg PO BID 05/26/22 07/18/22 amiodarone 400 mg tablet 200 mg PO QAM 07/18/22 07/18/22 Results & Data (ED) Vital Signs Vital Signs - 24 hr 07/18/22 07:51 07/18/22 08:14 07/18/22 08:10 Temperature 36.6 C Temperature Source Temporal Artery Scan Pulse Rate 75 72 Pulse Rate [Apical] 70 Pulse Rate from SpO2 Sensor Respiratory Rate 18 18 Respiratory Effort / Characteristics Non-Labored Spontaneous Respiratory Depth Normal Normal Respiratory Pattern Regular Blood Pressure 145/68 H Blood Pressure [Right Arm] 138/77 Blood Pressure Mean 93 Blood Pressure Mean [Right Arm] 97 Blood Pressure Position Sitting Blood Pressure Position [Right Arm] Sitting Pulse Oximetry 97 95 Oxygen Delivery Method Room Air Room Air Sepsis Recent Fever Within 48 Hours No Sepsis New/Unexplained Change in Mental Status No Sepsis Action Taken by Nursing No Action Required 07/18/22 08:10 07/18/22 08:30 07/18/22 09:00 Temperature Temperature Source Pulse Rate 70 69 66 Pulse Rate [Apical] Pulse Rate from SpO2 Sensor 70 66 Respiratory Rate 18 17 18 Respiratory Effort / Characteristics Respiratory Depth Respiratory Pattern Blood Pressure 146/70 H 139/73 Blood Pressure [Right Arm] Blood Pressure Mean 95 95 Blood Pressure Mean [Right Arm] Blood Pressure Position Blood Pressure Position [Right Arm] Pulse Oximetry 95 95 95 Oxygen Delivery Method Room Air Room Air Room Air Sepsis Recent Fever Within 48 Hours Sepsis New/Unexplained Change in Mental Status Sepsis Action Taken by Nursing 07/18/22 09:46 07/18/22 10:00 07/18/22 12:15 Temperature Temperature Source Pulse Rate 67 67 70 Pulse Rate [Apical] Pulse Rate from SpO2 Sensor 68 67 Respiratory Rate 16 19 Respiratory Effort / Characteristics Respiratory Depth Respiratory Pattern Blood Pressure 161/66 H 169/78 H Blood Pressure [Right Arm] Blood Pressure Mean 97 108 Blood Pressure Mean [Right Arm] Blood Pressure Position Blood Pressure Position [Right Arm] Pulse Oximetry 97 98 Oxygen Delivery Method Room Air Room Air Sepsis Recent Fever Within 48 Hours Sepsis New/Unexplained Change in Mental Status Sepsis Action Taken by Nursing 07/18/22 10:31 07/18/22 11:00 07/18/22 12:00 Temperature Temperature Source Pulse Rate 74 68 67 Pulse Rate [Apical] Pulse Rate from SpO2 Sensor 71 68 Respiratory Rate 30 H 24 15 Respiratory Effort / Characteristics Respiratory Depth Respiratory Pattern Blood Pressure 157/102 H 159/88 H Blood Pressure [Right Arm] Blood Pressure Mean 120 111 Blood Pressure Mean [Right Arm] Blood Pressure Position Blood Pressure Position [Right Arm] Pulse Oximetry 92 95 Oxygen Delivery Method Sepsis Recent Fever Within 48 Hours Sepsis New/Unexplained Change in Mental Status Sepsis Action Taken by Nursing 07/18/22 12:30 Temperature Temperature Source Pulse Rate 68 Pulse Rate [Apical] Pulse Rate from SpO2 Sensor Respiratory Rate 20 Respiratory Effort / Characteristics Respiratory Depth Respiratory Pattern Blood Pressure 151/70 H Blood Pressure [Right Arm] Blood Pressure Mean 97 Blood Pressure Mean [Right Arm] Blood Pressure Position Blood Pressure Position [Right Arm] Pulse Oximetry 96 Oxygen Delivery Method Sepsis Recent Fever Within 48 Hours Sepsis New/Unexplained Change in Mental Status Sepsis Action Taken by Nursing Laboratory Data Attestation: I reviewed the patient's lab results. 07/18/22 08:08 07/18/22 08:08 Lab Results 07/18/22 07/18/22 07/18/22 Range/Units 08:08 08:08 08:09 WBC 10.74 (4.8-10.8) K/ul RBC 3.92 L (4.70-6.10) M/uL Hgb 11.5 L (14.0-18.0) g/dl Hct 35.5 L (42.0-52.0) % MCV 90.6 (80.0-100.0) fL MCH 29.3 (25.0-34.0) pg MCHC 32.4 (32.0-36.0) g/dL RDW Std Deviation 49.1 H (36.4-46.3) fL RDW Coeff of Luis 14.7 H (11.5-14.5) % Plt Count 242 (130-400) K/uL MPV 10.6 (9.4-12.4) fL Immature Gran % (Auto) 0.4 % Neut % (Auto) 74.8 % Lymph % (Auto) 10.5 % [place] % (Auto) 13.3 % Eos % (Auto) 0.6 % Baso % (Auto) 0.4 % Neut # (Auto) 8.04 H (1.40-6.50) K/uL Lymph # (Auto) 1.13 L (1.2-3.4) K/uL [place] # (Auto) 1.43 H (0.11-0.59) K/uL Eos # (Auto) 0.06 (0-0.50) K/uL Baso # (Auto) 0.04 (0-0.2) K/uL Immature Gran # (Auto) 0.04 (0.01-0.20) K/uL PT (9.0-12.0) Seconds INR (0.9-1.1) APTT (21.0-31.0) Seconds PTT Ratio Sodium 134 L (136-145) mmol/L Potassium 4.0 (3.5-5.1) mmol/L Chloride 102 (98-107) mmol/L Carbon Dioxide 24 (21-32) mmol/L Anion Gap 8 (3-11) BUN 16 (6-23) mg/dl Creatinine 0.76 (0.6-1.4) mg/dl Est Cr Clr Drug Dosing 107.8 ml/min Est GFR ( Amer) 106.4 ml/min Est GFR (Non-Af Amer) 91.8 ml/min BUN/Creatinine Ratio 21.1 H (10-20) Glucose 258 H (70-99(Fasting)) mg/dl Calcium 9.3 (8.6-10.3) mg/dl Magnesium 1.4 L (1.7-2.4) mg/dl Total Bilirubin 0.9 (0.2-1.0) mg/dl AST 52 H (13-39) U/L ALT 50 (7-52) U/L Alkaline Phosphatase 45 (34-104) U/L Total Creatine Kinase (30-223) U/L Troponin I High Sens 414.5 H* (0-20) pg/ml Total Protein 6.9 (6.0-8.3) gm/dl Albumin 3.9 (3.4-5.0) gm/dl Globulin 3.0 (2.5-4.0) gm/dl Albumin/Globulin Ratio 1.3 (0.9-2) Lipase 7 L (11-82) U/L SARS-CoV-2, RNA, NAAT NEGATIVE (NEGATIVE) 07/18/22 07/18/22 Range/Units 08:09 10:12 WBC (4.8-10.8) K/ul RBC (4.70-6.10) M/uL Hgb (14.0-18.0) g/dl Hct (42.0-52.0) % MCV (80.0-100.0) fL MCH (25.0-34.0) pg MCHC (32.0-36.0) g/dL RDW Std Deviation (36.4-46.3) fL RDW Coeff of Luis (11.5-14.5) % Plt Count (130-400) K/uL MPV (9.4-12.4) fL Immature Gran % (Auto) % Neut % (Auto) % Lymph % (Auto) % [place] % (Auto) % Eos % (Auto) % Baso % (Auto) % Neut # (Auto) (1.40-6.50) K/uL Lymph # (Auto) (1.2-3.4) K/uL [place] # (Auto) (0.11-0.59) K/uL Eos # (Auto) (0-0.50) K/uL Baso # (Auto) (0-0.2) K/uL Immature Gran # (Auto) (0.01-0.20) K/uL PT 10.4 (9.0-12.0) Seconds INR 0.9 (0.9-1.1) APTT 28.3 (21.0-31.0) Seconds PTT Ratio 1.0 Sodium (136-145) mmol/L Potassium (3.5-5.1) mmol/L Chloride (98-107) mmol/L Carbon Dioxide (21-32) mmol/L Anion Gap (3-11) BUN (6-23) mg/dl Creatinine (0.6-1.4) mg/dl Est Cr Clr Drug Dosing ml/min Est GFR ( Amer) ml/min Est GFR (Non-Af Amer) ml/min BUN/Creatinine Ratio (10-20) Glucose (70-99(Fasting)) mg/dl Calcium (8.6-10.3) mg/dl Magnesium (1.7-2.4) mg/dl Total Bilirubin (0.2-1.0) mg/dl AST (13-39) U/L ALT (7-52) U/L Alkaline Phosphatase (34-104) U/L Total Creatine Kinase 40 (30-223) U/L Troponin I High Sens 371.2 H* (0-20) pg/ml Total Protein (6.0-8.3) gm/dl Albumin (3.4-5.0) gm/dl Globulin (2.5-4.0) gm/dl Albumin/Globulin Ratio (0.9-2) Lipase (11-82) U/L SARS-CoV-2, RNA, NAAT (NEGATIVE) Administered Medications Acetaminophen (Acetaminophen 500 Mg Tab) 500 mg PO Q4H PRN PRN Reason: pain first line Stop: 08/17/22 12:43 Last Admin: 07/18/22 13:16 Dose: 500 mg Documented By: LOYDA Colchicine (Colchicine 0.6 Mg Tab) 0.6 mg PO BID [facility] Stop: 08/17/22 12:59 Last Admin: 07/18/22 20:29 Dose: 0.6 mg Documented By: Admin: 07/18/22 13:14 Dose: 0.6 mg Documented By: LOYDA Diltiazem HCl (Diltiazem Hcl 240 Mg Capcr) 240 mg PO QPM REY Stop: 08/17/22 20:59 Last Admin: 07/18/22 20:29 Dose: 240 mg Documented By: JAKE Hydromorphone HCl (Hydromorphone Inj 1 Mg/Ml Syringe) 1 mg IV Q4H PRN PRN Reason: Severe Pain (7,8,9,10) on NRS Stop: 08/01/22 12:43 Last Admin: 07/18/22 13:16 Dose: 1 mg Documented By: LOYDA Heparin Sodium/Dextrose (Heparin Sodium/Dextrose) 25,000 units in 500 mls @ 31 mls/hr IV .Q16H8M [facility]; Protocol Stop: 08/17/22 11:59 Last Titration: 07/18/22 19:07 Dose: 1,550 units/hr, 31 mls/hr Documented By: JAEK Co-signed By: ZANE Admin: 07/18/22 12:32 Dose: 1,550 units/hr, 31 mls/hr Documented By: LOYDA Co-signed By: KAREN Pantoprazole Sodium 40 mg/ (Syringe) 10 mls @ 5 mls/min IV BID [facility] Stop: 08/17/22 14:59 Last Admin: 07/18/22 15:41 Dose: 5 mls/min Documented By: ZANE Insulin Aspart (Insulin Aspart Per Unit Charge) 0 units SC ACHS [facility] Stop: 08/17/22 16:29 Last Admin: 07/18/22 20:30 Dose: 3 units Documented By: JAKE Co-signed By: PITER Admin: 07/18/22 17:00 Dose: 7 units Documented By: ZANE Co-signed By: VALENTINA Insulin Glargine (Lantus Per Unit Charge) 42 units SQ HS [facility] Stop: 08/17/22 20:59 Last Admin: 07/18/22 20:30 Dose: 42 units Documented By: JAKE Co-signed By: PITER Miscellaneous (Fenofibrate Micronized 67 Mg Capsule- Order Awaiting Action) 1 each N/A QS [facility] Stop: 08/17/22 15:29 Last Admin: 07/18/22 16:14 Dose: Not Given Documented By: Admin: 07/18/22 15:51 Dose: Not Given Documented By: ZANE Miscellaneous (Mesalamine [Apriso] 0.375 Gram Capsule,Extended Release 24hr- Order Awaiting Action) 1 each N/A QS [facility] Stop: 08/17/22 15:16 Last Admin: 07/18/22 16:14 Dose: Not Given Documented By: Admin: 07/18/22 15:50 Dose: Not Given Documented By: AM Ondansetron HCl (Ondansetron Inj 2 Mg/Ml 2 Ml Vial) 4 mg IV Q4H PRN PRN Reason: Nausea Stop: 08/17/22 15:08 Last Admin: 07/18/22 19:13 Dose: 4 mg Documented By: AM Tamsulosin HCl (Tamsulosin Hcl 0.4 Mg Cap) 0.4 mg PO QPM REY Stop: 08/17/22 20:59 Last Admin: 07/18/22 20:29 Dose: 0.4 mg Documented By: JAKE Discontinued Medications Dexamethasone Sodium Phosphate (DexamethasonePf 10 Mg/Ml Vial) 10 mg PO NOW ONE Stop: 07/18/22 11:30 Last Admin: 07/18/22 11:48 Dose: 10 mg Documented By: LOYDA Heparin Sodium (Porcine) (Heparin Sod (Porcine) 1000 Unit/Ml) 1 units IV NOW ONE Stop: 07/18/22 11:50 Last Admin: 07/18/22 12:32 Dose: 7,000 units Documented By: LOYDA Co-signed By: KAREN Hydromorphone HCl (Hydromorphone Inj 0.5 Mg/0.5 Ml Syr) 0.25 mg IV NOW STA Stop: 07/18/22 19:25 Last Admin: 07/18/22 19:34 Dose: 0.25 mg Documented By: JAKE Sodium Chloride (Nss 1000ml) 1,000 mls @ 999 mls/hr IV .Q1H1M ONE Stop: 07/18/22 08:58 Last Infusion: 07/18/22 09:19 Dose: 0 mls/hr Documented By: Admin: 07/18/22 08:12 Dose: 999 mls/hr Documented By: EDWIN Famotidine (Pepcid 20mg Iv Push) 20 mg in 5 mls @ 2.5 mls/min IV NOW STA Stop: 07/18/22 11:30 Last Admin: 07/18/22 11:47 Dose: 2.5 mls/min Documented By: LOYDA Magnesium Sulfate/Dextrose (Magnesium Sulfate / D5w) 1 gm in 100 mls @ 50 mls/hr IV Q2H REY Stop: 07/18/22 16:14 Last Infusion: 07/18/22 17:23 Dose: 0 mls/hr Documented By: Admin: 07/18/22 15:10 Dose: 50 mls/hr Documented By: Infusion: 07/18/22 14:54 Dose: 0 mls/hr Documented By: Admin: 07/18/22 12:32 Dose: 50 mls/hr Documented By: LOYDA Ioversol (Optiray 320 500ml) 120 ml IV ONCE ONE Stop: 07/18/22 10:24 Last Admin: 07/18/22 10:23 Dose: 120 ml Documented By: ZEINA Morphine Sulfate (Morphine Sulfate 2 Mg/Ml Carp) 2 mg IV NOW STA Stop: 07/18/22 08:16 Last Admin: 07/18/22 08:42 Dose: 2 mg Documented By: EDWIN Morphine Sulfate (Morphine Sulfate 10 Mg/Ml Carp/Vial) 6 mg IV NOW STA Stop: 07/18/22 09:47 Last Admin: 07/18/22 09:52 Dose: 6 mg Documented By: EDWIN Ondansetron HCl (Ondansetron Inj 2 Mg/Ml 2 Ml Vial) 4 mg IV NOW STA Stop: 07/18/22 11:30 Last Admin: 07/18/22 11:45 Dose: 4 mg Documented By: LOYDA Sucralfate (Sucralfate 1 Gm/10 Ml Udc) 1 gm PO NOW STA Stop: 07/18/22 11:30 Last Admin: 07/18/22 12:18 Dose: 1 gm Documented By: LOYDA Imaging Data Radiologist's Impression: Chest CTA 07/18/22 08:15 CT ANGIOGRAM OF THE CHEST COMBO CLINICAL HISTORY: Atypical chest pain. Thoracic back pain. History of cardiac a blation. COMPARISON STUDY: Chest x-ray dated 07/18/2022. Chest CT dated 03/02/2009. TECHNIQUE: Before and following the IV administration of 100 and cc of Optiray 320, CT angiogram of the chest was performed from the thoracic inlet to the upper abdomen utilizing the dissection protocol. Images are reviewed in the axial, sagittal, and coronal planes. 3-D MIPS images are created and assessed. IV contrast was administered without complication. A dose lowering technique was utilized adhering to the principles of ALARA. CT DOSE: 1237.21 mGy.cm FINDINGS: Thyroid: Imaged portions of the thyroid gland are normal in size and attenuation. Thoracic aorta: No intramural hematoma is seen on the unenhanced series. There is atherosclerotic calcification of the thoracic aorta, which is normal in caliber and demonstrates standard 3-vessel arch anatomy. No dissection is seen. The arch vessels are widely patent. Pulmonary vasculature: The pulmonary trunk is normal in caliber. There are segmental and subsegmental pulmonary emboli within branches of the right lower lobe pulmonary artery (axial images #201 and #206). Heart: The heart is enlarged and without pericardial effusion. The coronary ar teries are densely calcified. There is diminished attenuation of the cardiac blood pool as compared to the myocardium suggesting anemia. Lungs and pleural spaces: There are trace pleural effusions with dependent atelectasis. Intralobular septal thickening is noted. The trachea and central airways are clear. There is no airspace consolidation typical for pneumonia. Foci of parenchymal scarring are seen throughout both lungs. There are scattered calcified granulomas. Mediastinum: There is no mediastinal lymphadenopathy. [place]: Clear. Axillae: There is no axillary lymphadenopathy. Upper abdomen: Cholecystectomy clips are noted. There is a small hiatal hernia. Skeletal structures: The skeletal structures are osteopenic. No lytic or blastic bony lesions are seen. Fusion hardware is noted in lower cervical spine. IMPRESSION: 1. Unremarkable CT angiogram of the thoracic aorta. 2. There are segmental and subsegmental pulmonary emboli within branches of the right lower lobe pulmonary artery. 3. Cardiomegaly with evidence of mild congestive failure. 4. Trace pleural effusions. 5. There is no airspace consolidation typical for pneumonia. 6. Additional findings as above. ACT 112: Negative or not required by law. Electronically signed by: Frandy Massey M.D. 07/18/2022 10:45 AM Discharge Plan Visit Data Chief Complaint: Chest Pain Stated Complaint: CHEST PAIN ED Provider: Denzel Andrews Discharge Problem: Pulmonary emboli, GERD (gastroesophageal reflux disease), Chest pain, Elevated troponin, History of cardiac radiofrequency ablation, Back pain Patient Disposition: Admitted As Inpatient Discharge Instructions Interventions: ED Discharge Assessment Last Done: 07/18/22 14:25 Pulmonary emboli Qualifiers: Pulmonary embolism type: unspecified Chronicity: acute Acute cor pulmonale presence: unspecified Qualified Code(s): I26.99 - Other pulmonary embolism without acute cor pulmonale
[2022-07-18 08:40] LABS: Basophils # (auto) 0.04 K/uL (0-0.2); Basophils % (auto) 0.4 %; Eosinophils # (auto) 0.06 K/uL (0-0.50); Eosinophils % (auto) 0.6 %; Hematocrit (blood only) 35.5 % (42.0-52.0); Hemoglobin 11.5 g/dl (14.0-18.0); Immature Granulocytes # (auto) 0.04 K/uL (0.01-0.20); Immature Granulocytes % (auto) 0.4 %; Lymphocytes # (auto) 1.13 K/uL (1.2-3.4); Lymphocytes % (auto) 10.5 %; Mean Corpuscular Hemoglobin 29.3 pg (25.0-34.0); Mean Corpuscular Hgb Conc 32.4 g/dL (32.0-36.0); Mean Corpuscular Volume 90.6 fL (80.0-100.0); Mean Platelet Volume 10.6 fL (9.4-12.4); Monocytes # (auto) 1.43 K/uL (0.11-0.59); Monocytes % (auto) 13.3 %; Neutrophils # (auto) 8.04 K/uL (1.40-6.50); Neutrophils % (auto) 74.8 %; Platelet Count 242 K/uL (130-400); RDW Coefficient of Variation 14.7 % (11.5-14.5); RDW Standard Deviation 49.1 fL (36.4-46.3); Red Blood Count 3.92 M/uL (4.70-6.10); White Blood Count 10.74 K/ul (4.8-10.8)
[2022-07-18 08:59] LABS: Albumin Globulin Ratio 1.3 (0.9-2); Albumin Level 3.9 gm/dl (3.4-5.0); BUN Creatinine Ratio 21.1 (10-20); Bilirubin,Total 0.9 mg/dl (0.2-1.0); Calcium 9.3 mg/dl (8.6-10.3); Creatinine Clr Calc Pharmacy 107.8 ml/min; Est GFR (African American) 106.4 ml/min; Est GFR (Non-African American) 91.8 ml/min; Magnesium 1.4 mg/dl (1.7-2.4); Total Protein 6.9 gm/dl (6.0-8.3)
--- NOTE | 2022-07-18 09:12 | XRay Report ---
SINGLE VIEW CHEST CLINICAL HISTORY: Atypical chest pain. FINDINGS: An AP, portable, upright chest radiograph is compared to study dated 05/26/2022 and correlate d with chest CT dated 03/02/2009. The heart is enlarged and noting atherosclerotic calcification of t he thoracic aorta. There is mild pulmonary vascular congestion. There is bibasilar scarring/atelectas is. No airspace consolidation or large pleural effusion is identified. No pneumothorax is seen. The s keletal structures are osteopenic. The bony thorax is grossly intact. Fusion hardware is noted in the lower cervical spine. IMPRESSION: 1. Cardiomegaly with mild pulmonary vascular congestion. 2. No airspace consolidation or large pleural effusion is identified. ACT 112: Negative or not required by law. Electronically signed by: Frandy Massey M.D. 07/18/2022 9:11 AM
[2022-07-18 09:23] LABS: Troponin I High Sensitivity 414.5 pg/ml (0-20)
[2022-07-18] MEDS ORDERED: MoRPHine SULFATE 10 MG/ML CARP/VIAL IV STA (09:46)
[2022-07-18] MEDS ORDERED: OPTIRAY 320 500ml IV ONE (10:23)
--- NOTE | 2022-07-18 10:48 | CT Scan Report ---
CT ANGIOGRAM OF THE CHEST COMBO CLINICAL HISTORY: Atypical chest pain. Thoracic back pain. History of cardiac ablation. COMPARISON STUDY: Chest x-ray dated 07/18/2022. Chest CT dated 03/02/2009. TECHNIQUE: Before and following the IV administration of 100 and cc of Optiray 320, CT angiogram of t he chest was performed from the thoracic inlet to the upper abdomen utilizing the dissection protocol . Images are reviewed in the axial, sagittal, and coronal planes. 3-D MIPS images are created and ass essed. IV contrast was administered without complication. A dose lowering technique was utilized adh ering to the principles of ALARA. CT DOSE: 1237.21 mGy.cm FINDINGS: Thyroid: Imaged portions of the thyroid gland are normal in size and attenuation. Thoracic aorta: No intramural hematoma is seen on the unenhanced series. There is atherosclerotic howard cification of the thoracic aorta, which is normal in caliber and demonstrates standard 3-vessel arch anatomy. No dissection is seen. The arch vessels are widely patent. Pulmonary vasculature: The pulmonary trunk is normal in caliber. There are segmental and subsegmental pulmonary emboli within branches of the right lower lobe pulmonary artery (axial images #201 and #20 6). Heart: The heart is enlarged and without pericardial effusion. The coronary arteries are densely calc ified. There is diminished attenuation of the cardiac blood pool as compared to the myocardium sugges ting anemia. Lungs and pleural spaces: There are trace pleural effusions with dependent atelectasis. Intralobular septal thickening is noted. The trachea and central airways are clear. There is no airspace consolida tion typical for pneumonia. Foci of parenchymal scarring are seen throughout both lungs. There are sc attered calcified granulomas. Mediastinum: There is no mediastinal lymphadenopathy. Jessika: Clear. Axillae: There is no axillary lymphadenopathy. Upper abdomen: Cholecystectomy clips are noted. There is a small hiatal hernia. Skeletal structures: The skeletal structures are osteopenic. No lytic or blastic bony lesions are see n. Fusion hardware is noted in lower cervical spine. IMPRESSION: 1. Unremarkable CT angiogram of the thoracic aorta. 2. There are segmental and subsegmental pulmonary emboli within branches of the right lower lobe pulm onary artery. 3. Cardiomegaly with evidence of mild congestive failure. 4. Trace pleural effusions. 5. There is no airspace consolidation typical for pneumonia. 6. Additional findings as above. ACT 112: Negative or not required by law. Electronically signed by: Frandy Massey M.D. 07/18/2022 10:45 AM
[2022-07-18 10:53] LABS: Troponin I High Sensitivity 371.2 pg/ml (0-20)
[2022-07-18] MEDS ORDERED: FAMOTIDINE 20MG IV PUSH 20 MG/5 ML SYR IV STA (11:29)
[2022-07-18] MEDS ORDERED: ONDANSETRON INJ 2 MG/ML 2 ML VIAL IV STA (11:29)
[2022-07-18] MEDS ORDERED: SUCRALFATE 1 GM/10 ML UDC PO STA (11:29)
[2022-07-18] MEDS ORDERED: dexAMETHasone**PF** 10 MG/ML VIAL PO ONE (11:29)
[2022-07-18] MEDS ORDERED: Heparin IV Adult Wt-Based Standard WITH Bolus Protocol IV STA (11:34)
--- NOTE | 2022-07-18 11:48 | History & Physical Report ---
Date of Service July 18, 2022 Assessment & Plan (1) Pulmonary emboli: Plan: Right lower lobe pulmonary emboli, with pleuritic pain and shoulder blade pain CTA: Segmental and subsegmental right lower lobe pulmonary emboli. No evidence of dissection or pneumonia -Presented with bilateral rib plain, right worse than left, worse with inspiration. Patient was off Eliquis prior to admission, then resumed Eliquis evening due to having a ablation at [facility] No leg swelling at any point. Has taken Eliquis twice daily without missed doses prior to this. No prior history of blood clots Was previously on Pradaxa over a year ago, has a history of paroxysmal A-fib, was switched to Eliquis due to insurance Heparinized on admission -Discussed switch to Xarelto/warfarin with patient and hematology. Patient likely has provoked clots in the setting of extensive manipulation in the groin during his ablation; however was only off of Eliquis for less than 48 hours total. Poor data regarding whether switch to Xarelto would be of benefit should this be an Eliquis failure, although due to it being held with manipulation could also be considered procedurally induced. Did recommend that patient trial a switch to Xarelto versus warfarin; however he strongly prefers to avoid this and remain on Eliquis. He understands that there is a risk that some patients do have Eliquis failure due to genetic components and it may not be the most efficacious medication for him; however he declined switch to Xarelto or warfarin, but will discuss Xarelto on follow-up with his cardiology team. Is aware that the data shows similar efficacy between the 2, with slightly higher bleeding risk with Xarelto and has discussed this previously. We will continue on heparinization, and obtain Dopplers to assess for access site clot burden. (2) Chest pain: Plan: Multifactorial. Patient with evidence of rib tenderness and costochondritis, additionally with pleuritic pain likely due to his pulmonary emboli Patient does also have central chest burning which shifts/changes positionally and patient was tripoding earlier which shifted the pain out of his chest. This is suspicious for postprocedural pericarditis, no pericardial effusion was noted on CT; however sensitivity for pericarditis without effusion is relatively poor. Troponin is elevated and downtrending last 371 in the setting of an ablation 48 hours ago. We will treat pain with colchicine, avoid NSAIDs due to history of IBD/UC. Steroids not recommended for the treatment of potential pericarditis, dexametha sone discontinued (3) Diabetes mellitus: Plan: Type II DM Continue Levemir 42 units every afternoon Home metformin held SSI weight-based ordered Glucose checks AC/at bedtime Heart healthy, DM 2 diet (4) GERD (gastroesophageal reflux disease): Plan: With epigastric tenderness, patient at risk for acute on chronic GERD in the setting of recent JOYCE/ablation Protonix twice daily ordered, continue Pepcid. Trend H&H. No indication for transfusion at this time. No signs of active bleeding at time of assessment. BUN is 16, no melena (5) Anxiety: Plan: Continue duloxetine (6) Asthma: Plan: No wheezing on admission, albuterol as needed (7) Hyperlipidemia: Plan: Statin intolerant, continue fenofibrate (8) Hypertension: Plan: Continue lisinopril (9) Crohn disease: Plan: No. Blood per rectum/melena. Do not suspect acute blood failure, continue mesalamine Plan DVT prophylaxis: Anticoagulated Diet: DM 2/heart healthy CODE STATUS: Full code Disposition: PCU for acute PE, elevated troponin, and chest pain History of Present Illness Primary Care Provider: Serafin Hein MD Ryan is a 72-year-old male with a past medical history of atrial flutter s/p ablation, type 2 diabetes mellitus, ulcerative colitis, mild persistent allergic asthma, dyslipidemia, depression who was seen 05/26/2022 for atrial flutter with RVR, who underwent successful electrocardioversion 05/28/2022 to sinus rhythm, and who had discharge from [facility] 07/17/2022 after ablation for A- fib. He has been anticoagulated on Eliquis. He presented to the ER 07/18/2022 with increasing chest and back pain worsened with inspiration. He is found to have segmental and subsegmental PEs on CTA. Off eliquis Wednesday Night (last dose wednesday AM). Ablation was , restarted that evening right after. Used some heparin during the ablation procedure, was not a drip. Per [employer]iconductor Technician went well with no complications. Returned home and had pain in ribs 'like a bad case of bronchitis and fire on both sides'. Pain was also between the shoulder blades. Has had burnign in chest, no squeezing. He is a little short of breath because deep breaths cause him pain when he takes a deep breath. Shoulder blade pain is still there, maybe a little better +Epigastric tenderness, + reproducible rib tenderness. +Nausea/vomiting only after getting No leg swelling at any pain Was previously on pradaxa, switched to eliquis about 1.5 years Sitting/learning forward caused pain in his back to improve a little, but did not improve the pain in his ribs./ Tried 1x leftover oxycontin which helped a little, tylenol did nothing for his pain at home. MOrhpine helped a little but made him very nauseus. Takes tylenol normally at home. History of hypereosinophilia brought on by statins, quinolones, and NSAIDs. Generally tries to stay away from ibuprofen/motrin. Medical History: Reviewed Medications: Reviewed Surgical History: Reviewed Family history: Reviewed Allergies: Reviewed Social History: Reviewed Code Status: Full Code Allergies Allergy/AdvReac Type Severity Reaction Status Date / Time trovafloxacin [From Trovan] Allergy Unknown Unknown Verified 06/12/22 09:00 Quinolones AdvReac Intermediate HYPEREOSINO Verified 06/12/22 09:00 PHILIA Pyegjyt-CLS-XnR Reductase AdvReac Intermediate HYPEREOSINO Verified 06/12/22 09:00 Inhibitor PHILIA [Kpbymti-Nri-Fyt Reductase Inhibitor] NSAIDS (Non-Steroidal AdvReac Unknown SENSITIVITY Verified 06/12/22 09:00 Anti-Inflamma R/T HX EOSINOPHILIA Home Medications Medication Instructions Recorded Confirmed Type albuterol sulfate 90 mcg/actuation 2 puff inhalation Q4H PRN 02/24/19 07/18/22 History aerosol inhaler (Ventolin HFA) Shortness Of Breath Or Wheezing cholecalciferol (vitamin D3) 25 1,000 unit PO Q OTHER DAY 02/24/19 07/18/22 History mcg (1,000 unit) chewable tablet (Vitamin D3) cyanocobalamin (vitamin B-12) 500 500 mcg PO QPM 02/24/19 07/18/22 History mcg tablet (Vitamin B-12) duloxetine 30 mg capsule,delayed 30 mg PO QAM 02/24/19 07/18/22 History release (Cymbalta) fenofibrate micronized 67 mg 67 mg PO QPM 02/24/19 07/18/22 History capsule insulin detemir U-100 100 unit/mL 46 unit subcut PM 02/24/19 07/18/22 History subcutaneous solution (Levemir U-100 Insulin) krill 1,000 mg-omega-3 170 mg-dha 1 cap PO QAM 02/24/19 07/18/22 History 50 mg-epa 80 [id number]-[id number] capsule (krill oil) lisinopril 20 mg tablet 20 mg PO QAM 02/24/19 07/18/22 History tamsulosin 0.4 mg capsule (Flomax) 0.4 mg PO QPM 02/24/19 07/18/22 History mesalamine 0.375 gram 0.75 g PO QPM 05/01/19 07/18/22 History capsule,extended release 24 hr (Apriso) ascorbic acid (vitamin C) 500 mg 500 mg PO DAILY 06/14/20 07/18/22 History tablet (Vitamin C) famotidine 40 mg tablet 40 mg PO DAILY 06/14/20 07/18/22 History metformin 500 mg tablet,extended 1,000 mg PO BID 06/14/20 07/18/22 History release 24 hr apixaban 5 mg tablet (Eliquis) 5 mg PO BID 08/10/20 07/18/22 History aspirin 81 mg tablet,delayed 81 mg PO QAM 08/10/20 07/18/22 History release diltiazem HCl 240 mg 240 mg PO QPM 05/26/22 07/18/22 History capsule,extended release 24 hr repaglinide 2 mg tablet 0 mg PO BID 05/26/22 07/18/22 History amiodarone 400 mg tablet 200 mg PO QAM 07/18/22 07/18/22 History Past Med/Surg History Medical History (Updated 07/18/22 @ 12:33 by Duke Petersen MD) Anxiety Arthritis Asthma uses res. inh approx once daily Atrial fibrillation dx: 4 yrs ago > [facility] > no pacer/cardioversion BPH (benign prostatic hyperplasia) Bronchitis Diabetes mellitus, type 2 GERD (gastroesophageal reflux disease) Hyperlipidemia Hypertension Leukoplakia of tongue Osteoarthritis Peptic ulcer disease HX Tongue dysplasia Ulcerative colitis Surgical History History of cardiac cath 2012 and 2013 > for ekg changes History of cholecystectomy History of colonoscopy History of endoscopic sinus surgery History of heart artery stent 2014> [place] > 1 stent > follows Dr. Snow [facility] Hx of left cataract extraction Hx of neck surgery fusion > [place] > C6,7 > ROM IS GOOD PER PATIENT S/P cholecystectomy 2009 Family History Mother Colon cancer Father Heart disease Stroke Sister Heart disease Social History Smoking Status: Never smoker Tobacco Type: Cigarettes Second Hand Exposure: No; Do You Dip or Chew Tobacco: Yes; Hx Alcohol Use: Yes Alcohol type: beer, wine and hard liquor Hx Substance Use: No Preferred Language: Tajik Communication Ability: Effective Bleach Tester Required: No Beliefs That Will Affect Care: None marital status: Current Living Situation: Spouse current occupational status: retired Feels Safe at Home: Yes Assistive Devices: None Review of Systems Review of Systems: All systems reviewed & are unremarkable except as noted in HPI & below Physical Exam Physical Exam: General: A&Ox3. NAD. Cooperative. HEENT: Atraumatic, normocephalic. Vision/hearing intact Pulm: CTAB A&P. -wheezes, -rales, -rhonchi. Symmetrical chest rise. No increased work of breathing. No respiratory distress. Thorax: TTP at lateral/anterior ribs bilaterally R.L worse at ribs 10-12. Cardiac: RRR, +sm, ?soft rub. Radial pulses intact and symmetrical. Abdominal: +Epigastric TTP. Abd soft, no rebound. Ext: warm, dry. No LE swelling/calf asymmetry. Moves all extremities equally. Results & Data Results & Data Vital Signs (Past 12 Hours) Vital Signs Temp Pulse Pulse Resp BP BP Pulse Ox 07/18/22 10:00 67 19 169/78 H 98 07/18/22 09:46 67 16 161/66 H 97 07/18/22 09:00 66 18 139/73 95 07/18/22 08:30 69 17 146/70 H 95 07/18/22 08:10 70 18 95 07/18/22 08:10 70 18 138/77 95 07/18/22 08:14 72 07/18/22 07:51 36.6 C 75 18 145/68 H 97 O2 Del Method 07/18/22 10:00 Room Air 07/18/22 09:46 Room Air 07/18/22 09:00 Room Air 07/18/22 08:30 Room Air 07/18/22 08:10 Room Air 07/18/22 08:10 Room Air 07/18/22 08:14 07/18/22 07:51 Room Air PG Care Time/CCT Total # of Minutes Spent Total Time Spent with Patient: Total time spent is greater than 50% in coordination of care (as documented) at patient's floor/unit and/or counseling patient: Coding Level of Care Code 20430 INT INP/OBS CARE 375MIN Diagnoses Pulmonary emboli I26.99 Chest pain R07.9 Diabetes mellitus E11.9 GERD (gastroesophageal reflux disease) K21.9 Anxiety F41.9 Asthma J45.909 Hyperlipidemia E78.5 Hypertension I10 Crohn disease K50.90
[2022-07-18] MEDS ORDERED: HEPARIN SOD (PORCINE) 1000 UNIT/ML IV ONE (11:49)
[2022-07-18] MEDS: MAGNESIUM SULFATE / D5W 1 GM/100 ML BAG IV SCH ×2 (12:32→15:10)
[2022-07-18] MEDS: HEPARIN SODIUM/DEXTROSE 25,000 UNITS/500 ML BAG IV SCH (12:32)
[2022-07-18 12:41] LABS: INR 0.9 (0.9-1.1); Partial Thromboplastin Time 28.3 Seconds (21.0-31.0); Prothrombin Time 10.4 Seconds (9.0-12.0)
[2022-07-18] MEDS ORDERED: ACETAMINOPHEN 500 MG TAB PO PRN (12:44)
[2022-07-18] MEDS ORDERED: GLUCOSE 10 TAB/TUBE PO PRN (12:44)
[2022-07-18] MEDS ORDERED: DEXTROSE 50% 50 ML SYRINGE IV PRN (12:44)
[2022-07-18] MEDS ORDERED: GLUCOSE 40% GEL 15 GM TUBE PO PRN (12:44)
[2022-07-18] MEDS ORDERED: GLUCAGON FOR INJ 1 MG VIAL SQ PRN (12:44)
[2022-07-18] MEDS ORDERED: HYDROmorphone INJ 0.5 MG/0.5 ML SYR IV PRN (12:44)
[2022-07-18] MEDS ORDERED: CARBOHYDRATES FOR HYPOGLYCEMIA PO PRN (12:44)
[2022-07-18] MEDS ORDERED: HYDROmorphone INJ 1 MG/ML SYRINGE IV PRN (12:44)
[2022-07-18] MEDS: COLCHICINE 0.6 MG TAB PO SCH ×2 (13:14→20:29)
[2022-07-18] MEDS ORDERED: ALBUTEROL HFA 8 GM INHALER INH PRN (14:53)
[2022-07-18] MEDS ORDERED: ONDANSETRON INJ 2 MG/ML 2 ML VIAL IV PRN (15:09)
[2022-07-18] MEDS: PANTOprazole 40 MG in SYRINGE 0 ML IV SCH ×2 (15:41→23:50)
[2022-07-18] MEDS ORDERED: INSULIN ASPART PER UNIT CHARGE SC SCH (16:30)
[2022-07-18] MEDS: INSULIN ASPART PER UNIT CHARGE SC SCH ×2 (17:00→20:30)
--- NOTE | 2022-07-18 19:12 | Ultrasound Report ---
ULTRASOUND BILATERAL LOWER EXTREMITY VENOUS CLINICAL HISTORY: Pulmonary embolus COMPARISON STUDY: No priors. TECHNIQUE: Real-time, grayscale, and color Doppler sonography of the deep veins of the right and left lower extremity was performed from the inguinal crease to the calf. Compression and augmentation wer e utilized. FINDINGS: Right lower extremity: The common femoral vein and greater saphenous vein were not visualized due to overlying bandage material. The superficial femoral and popliteal veins are patent and normally compr essible. The profunda femoris vein at the junction with the common femoral vein is clear. The visuali zed calf veins are patent. Left lower extremity: The left common femoral vein and the greater saphenous vein were not visualized due to overlying bandage material. The superficial femoral and popliteal veins are patent and normal ly compressible. The profunda femoris vein at the junction with the common femoral vein is clear. The visualized calf veins are patent. IMPRESSION: 1. There is no sonographic evidence of deep venous thrombosis in the right or left lower extremity. 2. Note that the common femoral and greater saphenous veins could not be assessed in either leg due t o overlying bandage material. ACT 112: Negative or not required by law. Electronically signed by: Frandy Massey M.D. 07/18/2022 7:09 PM
[2022-07-18 19:23] LABS: Partial Thromboplastin Ratio 1.8
[2022-07-18] MEDS ORDERED: HYDROmorphone INJ 0.5 MG/0.5 ML SYR IV STA (19:24)
[2022-07-18 19:31] LABS: Partial Thromboplastin Time 50.3 Seconds (21.0-31.0)
[2022-07-18] MEDS ORDERED: TAMSULOSIN HCL 0.4 MG CAP PO SCH (21:00)
[2022-07-18] MEDS ORDERED: dilTIAZem HCL 240 MG CAPCR PO SCH (21:00)
[2022-07-18] MEDS ORDERED: LANTUS PER UNIT CHARGE SQ SCH ×2 (21:00)
[2022-07-19 02:13] LABS: BUN Creatinine Ratio 20.5 (10-20); Calcium 8.7 mg/dl (8.6-10.3); Creatinine Clr Calc Pharmacy 97.7 ml/min; Est GFR (African American) 102.6 ml/min; Est GFR (Non-African American) 88.5 ml/min; Magnesium 1.7 mg/dl (1.7-2.4); Phosphorus 2.4 mg/dl (2.5-4.9); Potassium 4.2 mmol/L (3.5-5.1)
[2022-07-19 02:18] LABS: Basophils # (auto) 0.01 K/uL (0-0.2); Basophils % (auto) 0.1 %; Hematocrit (blood only) 32.5 % (42.0-52.0); Hemoglobin 10.8 g/dl (14.0-18.0); Immature Granulocytes # (auto) 0.03 K/uL (0.01-0.20); Immature Granulocytes % (auto) 0.3 %; Lymphocytes # (auto) 0.71 K/uL (1.2-3.4); Lymphocytes % (auto) 7.4 %; Mean Corpuscular Hemoglobin 29.3 pg (25.0-34.0); Mean Corpuscular Hgb Conc 33.2 g/dL (32.0-36.0); Mean Corpuscular Volume 88.3 fL (80.0-100.0); Mean Platelet Volume 11.2 fL (9.4-12.4); Monocytes % (auto) 8.3 %; Neutrophils # (auto) 8.04 K/uL (1.40-6.50); Neutrophils % (auto) 83.9 %; Platelet Count 217 K/uL (130-400); RDW Coefficient of Variation 14.2 % (11.5-14.5); RDW Standard Deviation 46.1 fL (36.4-46.3); Red Blood Count 3.68 M/uL (4.70-6.10); White Blood Count 9.59 K/ul (4.8-10.8)
[2022-07-19 02:39] LABS: Partial Thromboplastin Ratio 1.7
[2022-07-19 03:27] LABS: Partial Thromboplastin Time 49.2 Seconds (21.0-31.0)
[2022-07-19] MEDS: HEPARIN SODIUM/DEXTROSE 25,000 UNITS/500 ML BAG IV SCH (04:28)
--- NOTE | 2022-07-19 08:00 | Hospitalist Progress Note ---
Date of Service July 19, 2022 Assessment & Plan Plan Pulmonary emboli Right lower lobe pulmonary emboli, with pleuritic pain and shoulder blade pain CTA: Segmental and subsegmental right lower lobe pulmonary emboli. No evidence of dissection or pneumonia -Presented with bilateral rib plain, right worse than left, worse with inspiration. Patient was off Eliquis prior to admission, then resumed Eliquis evening due to having a ablation at [facility] No leg swelling at any point. Has taken Eliquis twice daily without missed doses prior to this. No prior history of blood clots Was previously on Pradaxa over a year ago, has a history of paroxysmal A-fib, was switched to Eliquis due to insurance Heparinized on admission -Discussed switch to Xarelto/warfarin with patient and hematology. Patient likely has provoked clots in the setting of extensive manipulation in the groin during his ablation; however was only off of Eliquis for less than 48 hours total. Poor data regarding whether switch to Xarelto would be of benefit should this be an Eliquis failure, although due to it being held with manipulation could also be considered procedurally induced. Did recommend that patient trial a switch to Xarelto versus warfarin; however he strongly prefers to avoid this and remain on Eliquis. He understands that there is a risk that some patients do have Eliquis failure due to genetic components and it may not be the most efficacious medication for him; however he declined switch to Xarelto or warfarin, but will discuss Xarelto on follow-up with his cardiology team. Is aware that the data shows similar efficacy between the 2, with slightly higher bleeding risk with Xarelto and has discussed this previously. We will continue on heparinization, and obtain Dopplers to assess for access site clot burden. Chest pain Multifactorial. Patient with evidence of rib tenderness and costochondritis, additionally with pleuritic pain likely due to his pulmonary emboli Patient does also have central chest burning which shifts/changes positionally and patient was tripoding earlier which shifted the pain out of his chest. This is suspicious for postprocedural pericarditis, no pericardial effusion was noted on CT; however sensitivity for pericarditis without effusion is relatively poor. Troponin is elevated and downtrending last 371 in the setting of an ablation 48 hours ago. We will treat pain with colchicine, avoid NSAIDs due to history of IBD/UC. Steroids not recommended for the treatment of potential pericarditis, dexamethasone discontinued Diabetes mellitus Type II DM Continue Levemir 42 units every afternoon Home metformin held SSI weight-based ordered Glucose checks AC/at bedtime Heart healthy, DM 2 diet GERD (gastroesophageal reflux disease) With epigastric tenderness, patient at risk for acute on chronic GERD in the setting of recent JOYCE/ablation Protonix twice daily ordered, continue Pepcid. Trend H&H. No indication for transfusion at this time. No signs of active bleeding at time of assessment. BUN is 16, no melena Anxiety Continue duloxetine Asthma: Plan: No wheezing on admission, albuterol as needed Hyperlipidemia Statin intolerant, continue fenofibrate Hypertension Continue lisinopril Crohn disease No. Blood per rectum/melena. Do not suspect acute blood failure, continue mesalamine Plan DVT prophylaxis: Anticoagulated Diet: DM 2/heart healthy CODE STATUS: Full code Disposition: PCU for acute PE, elevated troponin, and chest pain Admission and Anticipated Discharge Date Admission Date: July 18, 2022 Review of Systems Review of Systems: As per HPI Results & Data Results & Data Vital Signs (Past 12 Hours) Vital Signs Temp Pulse Pulse Pulse Resp BP Pulse Ox 07/19/22 07:00 36.6 C 64 16 129/70 95 07/19/22 03:26 36.5 C 70 22 145/77 H 95 07/18/22 23:26 36.4 C L 78 22 146/69 H 97 07/18/22 22:47 74 07/18/22 20:00 07/18/22 20:14 36.8 C 74 22 122/65 93 O2 Del Method 07/19/22 07:00 Room Air 07/19/22 03:26 Room Air 07/18/22 23:26 Room Air 07/18/22 22:47 07/18/22 20:00 Room Air 07/18/22 20:14 Room Air Resident Activity Tracking Resident Involvement: Resident Care Provided Care Provided: Adult Hospital Medicine
[2022-07-19] MEDS: INSULIN ASPART PER UNIT CHARGE SC SCH ×2 (08:14→12:13)
[2022-07-19] MEDS: COLCHICINE 0.6 MG TAB PO SCH (08:15)
[2022-07-19] MEDS: PANTOprazole 40 MG in SYRINGE 0 ML IV SCH (08:17)
[2022-07-19] MEDS ORDERED: ASPIRIN 81 MG ECTAB PO SCH (09:00)
[2022-07-19] MEDS ORDERED: FAMOTIDINE 40 MG TABLET PO SCH (09:00)
[2022-07-19] MEDS ORDERED: MAGNESIUM OXIDE 400 MG TAB PO SCH (09:00)
[2022-07-19] MEDS ORDERED: DULoxetine HCL 30 MG CAP PO SCH (09:00)
[2022-07-19] MEDS ORDERED: AMIODARONE 200 MG TAB PO SCH (09:00)
[2022-07-19] MEDS ORDERED: lisinopril 20 MG TAB PO SCH (09:00)
--- NOTE | 2022-07-19 13:58 | Discharge Summary ---
Date of Service July 19, 2022 Admission HPI Per Admitting Provider Ryan is a 72-year-old male with a past medical history of atrial flutter s/p ablation, type 2 diabetes mellitus, ulcerative colitis, mild persistent allergic asthma, dyslipidemia, depression who was seen 05/26/2022 for atrial flutter with RVR, who underwent successful electrocardioversion 05/28/2022 to sinus rhythm, and who had discharge from [facility] 07/17/2022 after ablation for A- fib. He has been anticoagulated on Eliquis. He presented to the ER 07/18/2022 with increasing chest and back pain worsened with inspiration. He is found to have segmental and subsegmental PEs on CTA. Off eliquis Wednesday Night (last dose wednesday). Ablation was , restarted that evening right after. Used some heparin during the ablation procedure, was not a drip. Per Promotion Writer went well with no complications. Returned home and had pain in ribs 'like a bad case of bronchitis and fire on both sides'. Pain was also between the shoulder blades. Has had burnign in chest, no squeezing. He is a little short of breath because deep breaths cause him pain when he takes a deep breath. Shoulder blade pain is still there, maybe a little better +Epigastric tenderness, + reproducible rib tenderness. +Nausea/vomiting only after getting No leg swelling at any pain Was previously on pradaxa, switched to eliquis about 1.5 years Sitting/learning forward caused pain in his back to improve a little, but did not improve the pain in his ribs./ Tried 1x leftover oxycontin which helped a little, tylenol did nothing for his pain at home. MOrhpine helped a little but made him very nauseus. Takes tylenol normally at home. History of hypereosinophilia brought on by statins, quinolones, and NSAIDs. Generally tries to stay away from ibuprofen/motrin. Medical History: Reviewed Medications: Reviewed Surgical History: Reviewed Family history: Reviewed Allergies: Reviewed Social History: Reviewed Code Status: Full Code Admission Exam Per Admitting Provider General: A&Ox3. NAD. Cooperative. HEENT: Atraumatic, normocephalic. Vision/hearing intact Pulm: CTAB A&P. -wheezes, -rales, -rhonchi. Symmetrical chest rise. No increased work of breathing. No respiratory distress. Thorax: TTP at lateral/anterior ribs bilaterally R.L worse at ribs 10-12. Cardiac: RRR, +sm, ?soft rub. Radial pulses intact and symmetrical. Abdominal: +Epigastric TTP. Abd soft, no rebound. Ext: warm, dry. No LE swelling/calf asymmetry. Moves all extremities equally. Principal Diagnosis Pulmonary Emboli Discharge Exam Constitutional WD/WN, vitals as above Eyes Anicteric sclerae ENMT External ears and nose normal, moist mucous membranes Respiratory normal respiratory effort, lungs clear to auscultation Cardiovascular RRR, no murmur, no edema Gastrointestinal (Abdomen) normal bowel sounds, soft, nontender, no hepatosplenomegaly Musculoskeletal Tenderness at right trapezius Skin no rashes, warm and dry Psychiatric A+Ox3, euthymic affect Discharge Data Allergies Allergy/AdvReac Type Severity Reaction Status Date / Time trovafloxacin [From Trovan] Allergy Unknown Unknown Verified 06/12/22 09:00 Quinolones AdvReac Intermediate HYPEREOSINO Verified 06/12/22 09:00 PHILIA Ytekrwz-DLC-FpR Reductase AdvReac Intermediate HYPEREOSINO Verified 06/12/22 09:00 Inhibitor PHILIA [Qeqtrnx-Oey-Kdl Reductase Inhibitor] NSAIDS (Non-Steroidal AdvReac Unknown SENSITIVITY Verified 06/12/22 09:00 Anti-Inflamma R/T HX EOSINOPHILIA Consultations 07/18/22 11:30 ED Decision to Admit Stat Ordered Studies 07/18/22 08:15 CT angio chest dissec wo/w con Stat 07/18/22 14:53 US leg [US venous doppler LE BI] Urgent Chest X-Ray 07/18/22 07:57 SINGLE VIEW CHEST CLINICAL HISTORY: Atypical chest pain. FINDINGS: An AP, portable, upright chest radiograph is compared to study dated 05/26/2022 and correlated with chest CT dated 03/02/2009. The heart is enlarged and noting atherosclerotic calcification of the thoracic aorta. There is mild pulmonary vascular congestion. There is bibasilar scarring/atelectasis. No airspace consolidation or large pleural effusion is identified. No pneumothorax is seen. The skeletal structures are osteopenic. The bony thorax is grossly intact. Fusion hardware is noted in the lower cervical spine. IMPRESSION: 1. Cardiomegaly with mild pulmonary vascular congestion. 2. No airspace consolidation or large pleural effusion is identified. ACT 112: Negative or not required by law. Electronically signed by: Frandy Massey M.D. 07/18/2022 9:11 AM Chest CTA 07/18/22 08:15 CT ANGIOGRAM OF THE CHEST COMBO CLINICAL HISTORY: Atypical chest pain. Thoracic back pain. History of cardiac ablation. COMPARISON STUDY: Chest x-ray dated 07/18/2022. Chest CT dated 03/02/2009. TECHNIQUE: Before and following the IV administration of 100 and cc of Optiray 320, CT angiogram of the chest was performed from the thoracic inlet to the upper abdomen utilizing the dissection protocol. Images are reviewed in the axial, sagittal, and coronal planes. 3-D MIPS images are created and assessed. IV contrast was administered without complication. A dose lowering technique was utilized adhering to the principles of ALARA. CT DOSE: 1237.21 mGy.cm FINDINGS: Thyroid: Imaged portions of the thyroid gland are normal in size and attenuation. Thoracic aorta: No intramural hematoma is seen on the unenhanced series. There is atherosclerotic calcification of the thoracic aorta, which is normal in caliber and demonstrates standard 3-vessel arch anatomy. No dissection is seen. The arch vessels are widely patent. Pulmonary vasculature: The pulmonary trunk is normal in caliber. There are segmental and subsegmental pulmonary emboli within branches of the right lower lobe pulmonary artery (axial images #201 and #206). Heart: The heart is enlarged and without pericardial effusion. The coronary arteries are densely calcified. There is diminished attenuation of the cardiac blood pool as compared to the myocardium suggesting anemia. Lungs and pleural spaces: There are trace pleural effusions with dependent atelectasis. Intralobular septal thickening is noted. The trachea and central airways are clear. There is no airspace consolidation typical for pneumonia. Foci of parenchymal scarring are seen throughout both lungs. There are scattered calcified granulomas. Mediastinum: There is no mediastinal lymphadenopathy. Jessika: Clear. Axillae: There is no axillary lymphadenopathy. Upper abdomen: Cholecystectomy clips are noted. There is a small hiatal hernia. Skeletal structures: The skeletal structures are osteopenic. No lytic or blastic bony lesions are seen. Fusion hardware is noted in lower cervical spine. IMPRESSION: 1. Unremarkable CT angiogram of the thoracic aorta. 2. There are segmental and subsegmental pulmonary emboli within branches of the right lower lobe pulmonary artery. 3. Cardiomegaly with evidence of mild congestive failure. 4. Trace pleural effusions. 5. There is no airspace consolidation typical for pneumonia. 6. Additional findings as above. ACT 112: Negative or not required by law. Electronically signed by: Frandy Massey M.D. 07/18/2022 10:45 AM Venous Doppler Study 07/18/22 14:53 ULTRASOUND BILATERAL LOWER EXTREMITY VENOUS CLINICAL HISTORY: Pulmonary embolus COMPARISON STUDY: No priors. TECHNIQUE: Real-time, grayscale, and color Doppler sonography of the deep veins of the right and left lower extremity was performed from the inguinal crease to the calf. Compression and augmentation were utilized. FINDINGS: Right lower extremity: The common femoral vein and greater saphenous vein were not visualized due to overlying bandage material. The superficial femoral and popliteal veins are patent and normally compressible. The profunda femoris vein at the junction with the common femoral vein is clear. The visualized calf veins are patent. Left lower extremity: The left common femoral vein and the greater saphenous vein were not visualized due to overlying bandage material. The superficial femoral and popliteal veins are patent and normally compressible. The profunda femoris vein at the junction with the common femoral vein is clear. The visualized calf veins are patent. IMPRESSION: 1. There is no sonographic evidence of deep venous thrombosis in the right or left lower extremity. 2. Note that the common femoral and greater saphenous veins could not be assessed in either leg due to overlying bandage material. ACT 112: Negative or not required by law. Electronically signed by: Frandy Massey M.D. 07/18/2022 7:09 PM Hospital Course (1) GERD (gastroesophageal reflux disease): (2) Chest pain: (3) Elevated troponin: (4) History of cardiac radiofrequency ablation: (5) Back pain: (6) Pulmonary emboli: (7) Hypertension: Chau Davis is a 72-year-old male with a past medical history of atrial flutter s/p ablation, type 2 diabetes mellitus, ulcerative colitis, mild persistent allergic asthma, dyslipidemia, depression who was seen 05/26/2022 for atrial flutter with RVR, who underwent successful electrocardioversion 05/28/2022 to sinus rhythm, and who had discharge from [facility] 07/17/2022 after ablation for A- fib. He has been anticoagulated on Eliquis. He presented to the ER 07/18/2022 with increasing chest and back pain worsened with inspiration. He is found to have segmental and subsegmental PEs on CTA. Pulmonary emboli - Patient was diagnosed with right lower lobe pulmonary emboli, with pleuritic pain and shoulder blade pain CTA: Segmental and subsegmental right lower lobe pulmonary emboli. No evidence of dissection or pneumonia Patient was off Eliquis prior to admission, then resumed Eliquis due to having a ablation at [facility] No leg swelling at any point, venous duplex on admission negative. Has taken Eliquis twice daily without missed doses prior to this. No prior history of blood clots Heparinized on admission, discussed plan for mediations at discharge- patient would prefer to remain on Eliquis. Advised patient to start Eliquis 10mg BID x7 days and then after 7 days return to usual dose of 5mg BID. Note: during admission, patient was periodically flipping from atrial fibrillation to sinus rhythm Chest pain Multifactorial. Patient with evidence of rib tenderness and costochondritis, additionally with pleuritic pain likely due to his pulmonary emboli - Symptoms resolved during admission. Patient received colchicine for pain relief during admission. - Troponin initially elevated but trended to a peak. Diabetes mellitus Type II DM, most recent A1C from May 30.1% Continue Levemir 46 units every afternoon, restart home Metformin Advised patient to follow up with PCP to discuss additional options for medications to achieve tighter glycemic control GERD (gastroesophageal reflux disease) With mild epigastric tenderness, patient at risk for acute on chronic GERD in the setting of recent JOYCE/ablation Protonix twice daily while admitted, continue home Famotidine on discharge No signs of active bleeding during admission Anxiety Continue duloxetine Asthma No wheezing on admission, albuterol as needed Hyperlipidemia Statin intolerant, continue fenofibrate Total Time Total Time Spent Total Time Spent (In Minutes): . Discharge Plan Discharge Items Patient Disposition: Home - Self-Care Reason For Visit: RLL PE, CHEST PAIN, ?PERICARDITIS Discharge Diagnosis: Pulmonary Emboli Activity: Per Instructions section Non-emergency contact: Primary Care Provider Call non-emergency contact if: you have any medication questions, your symptoms worsen and your temperature is above 101.5 Follow-up/Referrals: Serafin Hein MD [Primary Care Provider] - Diet: Carb Consistent or DM2 Addtl Attending Provider Instructions: Ryan, you were admitted to the hospital for pulmonary emboli and chest pain, you were treated with heparin. During your hospital admission we also monitored your troponin which was initially elevated. Your symptoms improved and at time of discharge you were breathing comfortably. Considering these new clots, we will discharge you on an increased dosage of Eliquis (1omg twice daily) which you will take for 1 week- at that time you can resume your previous dosage of 5mg twice daily. Your blood sugar levels were also elevated during this hospitalization (300+). We discussed that you are typically on Metformin and Insulin at home, but have discussed with your PCP in the past about adding additional medications like Jardiance to help with your blood sugars. We would recommend at your follow up appointment with Dr. Hein that you again discuss which additional medication may help get your blood sugar under better control. * Please schedule a follow up appointment with your PCP within 1-2 weeks of discharge from the hospital. -You will take Eliquis 10mg twice daily for 1 week. We discussed sending a new prescription for this dosage but you had enough of the 5mg tablets at home to take 2 tablets twice daily instead. After 7 days, please return to your previous dosage of 5mg twice daily. -If you develop new or worsening symptoms of shortness of breath, chest pain radiating down your arm/to your jaw, please go the nearest emergency department. Pending Studies at Discharge: No Stand-Alone Forms: My [facility], Smoking Cessation Medications and DC Order Prescriptions: New Eliquis 5 mg tablet 10 mg PO BID 7 Days Qty: 28 0RF Continued lisinopril 20 mg Tablet 20 mg PO QAM fenofibrate micronized 67 mg Capsule 67 mg PO QPM cyanocobalamin (vitamin B-12) [Vitamin B-12] 500 mcg Tablet 500 mcg PO QPM tamsulosin [Flomax] 0.4 mg Capsule 0.4 mg PO QPM albuterol sulfate [Ventolin HFA] 90 mcg/actuation Hfa Aerosol Inhaler 2 puff INHALATION Q4H PRN (Reason: Shortness Of Breath Or Wheezing) duloxetine [Cymbalta] 30 mg Capsule,Delayed Release(Dr/Ec) 30 mg PO QAM Levemir U-100 Insulin 100 unit/mL Solution 46 unit SUBCUT PM cholecalciferol (vitamin D3) [Vitamin D3] 1,000 unit Tablet,Chewable 1,000 unit PO Q OTHER DAY Rx Instructions: HS krill oil 1,388-187-22-80 mg Capsule 1 cap PO QAM mesalamine [Apriso] 0.375 gram Capsule,Extended Release 24hr 0.75 g PO QPM aspirin 81 mg Tablet,Delayed Release (Dr/Ec) 81 mg PO QAM amiodarone 400 mg tablet 200 mg PO QAM famotidine 40 mg tablet 40 mg PO DAILY ascorbic acid (vitamin C) [Vitamin C] 500 mg Tablet 500 mg PO DAILY metformin 500 mg tablet extended release 24 hr 1,000 mg PO BID diltiazem HCl 240 mg capsule,extended release 24hr 240 mg PO QPM repaglinide 2 mg tablet 0 mg PO BID Rx Instructions: Pt takes 2 mg by mouth with dinner around 6pm and will take another 2 mg if eating snacks around 8 pm No Action Eliquis 5 mg tablet 5 mg PO BID Discharge Orders: Discharge Order (Routine); Ordered 07/19/22 Ordered By: Saida Chaparro Admission Data Admit Date/Time: 07/18/22 12:44 Attending Provider: Aristides Alcocer Admit Provider: Duke Petersen Primary Care Provider: Serafin Hein Other Providers: Duke Petersen Other Interventions: Discharge Summary Assessment (RN) Last Done: 07/19/22 13:23 Supervising Physician Co-Signing Physician Notes I personally examined the patient and verified all matias points of history and exam, discussed case, and agree with decision making with Dr Chaparro really wants to go home. feels fine. discussed risk/benefit of different approaches he decides eliquis fits for him the best. vitals noted no distress. Breathing unlabored no accessory muscle use. Sinus at about 60 on the monitor but right before going to room. No focal neurodeficits. Pulmonary emboliwhile exact etiology, and whether or not he failed Eliquis certainly can be academically entertained, he and I agree that being off of his Eliquis at the time of the procedure, being immobile on the table for 4-5 hours for the procedure, as well as puncture wounds into blood vessels leading to thrombosis all makes it unlikely that he truly failed Eliquis. Vitals are stable, stable for home, we discussed, as did the admission physician, different options for ongoing anticoagulation. Patient and myself agree that Eliquiswith a loading dose of 10 mg twice daily for the next 7 days, followed by 5 mg twice daily thereafter, makes the most sense. He notes that he has significant reserve of Eliquis from a time (I believe he said April) when he was forgetting his morning dosetherefore he needs no additional prescription sent. Otherwise as above
--- NOTE | 2022-07-19 16:02 | Billing Data ---
Date of Service July 19, 2022 Coding Level of Care Code 67072 IN/OBS DISCH 30 MIN/LESS
[2022-07-20 07:25] LABS: Estimated Average Glucose 217 mg/dl; Hemoglobin A1C 9.2 % (4.5-5.6)
--- NOTE | 2022-07-20 08:50 | Electrocardiogram Report ---
Test Reason : Blood Pressure : / mmHG Vent. Rate : 073 BPM Atrial Rate : 073 BPM P-R Int : 210 ms QRS Dur : 104 ms QT Int : 404 ms P-R-T Axes : 069 064 052 degrees QTc Int : 445 ms Sinus rhythm with 1st degree A-V block Cannot rule out Anterior infarct (cited on or before 18-JUL-2022) Abnormal ECG When compared with ECG of 28-MAY-2022 08:49, Serial changes of evolving Anterior infarct Present Confirmed by Kain Posada ([id number]) on 07/20/2022 8:49:37 AM Referred By: REFERRED SELF Confirmed By:Kain Posada
--- NOTE | 2022-07-20 08:52 | Electrocardiogram Report ---
Test Reason : Blood Pressure : / mmHG Vent. Rate : 069 BPM Atrial Rate : 069 BPM P-R Int : 214 ms QRS Dur : 104 ms QT Int : 414 ms P-R-T Axes : 067 062 048 degrees QTc Int : 443 ms Poor data quality, interpretation may be adversely affected Sinus rhythm with 1st degree A-V block Cannot rule out Anterior infarct (cited on or before 18-JUL-2022) Abnormal ECG When compared with ECG of 18-JUL-2022 08:01, (unconfirmed) No significant change Confirmed by Kain Posada ([id number]) on 07/20/2022 8:51:57 AM Referred By: REFERRED SELF Confirmed By:Kain Posada
--- NOTE | 2022-07-20 09:02 | Electrocardiogram Report ---
Test Reason : Blood Pressure : / mmHG Vent. Rate : 089 BPM Atrial Rate : 098 BPM P-R Int : 000 ms QRS Dur : 106 ms QT Int : 402 ms P-R-T Axes : 000 067 037 degrees QTc Int : 489 ms Poor data quality, interpretation may be adversely affected Atrial fibrillation Prolonged QT Abnormal ECG When compared with ECG of 18-JUL-2022 09:43, (unconfirmed) Atrial fibrillation has replaced Sinus rhythm Confirmed by Kain Posada ([id number]) on 07/20/2022 9:02:16 AM Referred By: REFERRED SELF Confirmed By:Kain Posada
== END 2022-07-19 14:17 | disposition home or self-care (01) ==
LOC: ED 07:50 → 2S 07:50 → SUATTDRO 12:44 → 2S 14:25